=== PATIENT | female | born 1970 | race Caucasian/White ===

== ENCOUNTER 2017-01-23 12:57 | Inpatient (IN) | payer OTHER ==
[~2017-01-23] VITALS: Ht 162.6 cm; Wt 73.7 kg
[2017-01-23] MEDS ORDERED: SOD CHLORIDE 0.9% 1,000 ML IV STA (13:11)
[2017-01-23] MEDS ORDERED: HYDROmorphONE 1 MG/ML SYG IV STA (13:11)
[2017-01-23] MEDS ORDERED: ONDANSETRON 4 MG INJ IV STA (13:11)
--- NOTE | 2017-01-23 13:25 | ERD ---
ER Documentation Chief Complaint Chief Complaint BIB RA FOR EVAL OF MID SHARP ABD PAIN SINCE TODAY. HPI This is a 46-year-old female with no significant past medical history other than hysterectomy presents with abdominal pain. She states sudden onset of abdominal pain that is diffuse, 9 out of 10 and cramping that started this morning. She describes similar symptoms around 6 giving before eating. She has not had any pain since then. She denies any nausea or vomiting. She does note constipation with last bowel movement yesterday. She denies any chest pain or shortness of breath fevers or chills. ROS All systems reviewed and are negative except as per history of present illness. Medications Home Meds Reported Medications Esomeprazole Mag Trihydrate (Nexium) 20 Mg Capsule.dr, 20 MG PO DAILY, #30 CAP 01/23/17 Allergies Allergies: Coded Allergies: No Known Allergy (Unverified , 01/23/17) PMhx/Soc Medical and Surgical Hx: pt denies Medical Hx, pt denies Surgical Hx ( Hysterectomy) History of Surgery: Yes Hx Alcohol Use: No Hx Substance Use: No Hx Tobacco Use: No Smoking Status: Never smoker FmHx Family History: No diabetes Physical Exam Vitals Vital Signs Date Time Temp Pulse Resp B/P Pulse Ox O2 Delivery O2 Flow Rate FiO2 01/23/17 13:16 96.3 77 18 117/69 99 Physical Exam General: Uncomfortable Head: Normocephalic, atraumatic. Eyes: Pupils equally reactive, EOM intact ENT: Moist mucous membranes Neck: Supple, no lymphadenopathy Respiratory: Lungs clear bilaterally, no distress Cardiovascular: RRR, no murmurs, rubs, or gallops Abdominal: Soft, slightly protuberant with mild diffuse tenderness without localization, no peritonitis, though voluntary guarding : Deferred MSK: No edema, no unilateral swelling, 5/5 strength Neurologic: Alert and oriented, moving all extremities, normal speech, no focal weakness, no cerebellar signs Skin: No rash Psych: Normal mood Result Diagram: 01/23/17 1314 01/23/17 1314 Results 24 hrs Laboratory Tests Test 01/23/17 13:14 White Blood Count 8.210^3/ul Red Blood Count 4.6610^6/ul Hemoglobin 13.6g/dl Hematocrit 41.5% Mean Corpuscular Volume 89.1fl Mean Corpuscular Hemoglobin 29.2pg Mean Corpuscular Hemoglobin Concent 32.8g/dl Red Cell Distribution Width 12.9% Platelet Count 81273^3/UL Mean Platelet Volume 11.1fl Neutrophils % 67.1% Lymphocytes % 25.8% Monocytes % 4.3% Eosinophils % 2.0% Basophils % 0.4% Nucleated Red Blood Cells % 0.0/100WBC Neutrophils # 5.510^3/ul Lymphocytes # 2.110^3/ul Monocytes # 0.410^3/ul Eosinophils # 0.210^3/ul Basophils # 0.010^3/ul Nucleated Red Blood Cells # 0.010^3/ul Sodium Level 144mmol/L Potassium Level 3.5mmol/L Chloride Level 104mmol/L Carbon Dioxide Level 27mmol/L Anion Gap 17 Blood Urea Nitrogen 9mg/dl Creatinine 0.62mg/dl Glucose Level 138mg/dl Calcium Level 9.6mg/dl Total Bilirubin 0.2mg/dl Direct Bilirubin 0.00mg/dl Indirect Bilirubin 0.2mg/dl Aspartate Amino Transf (AST/SGOT) 747IU/L Alanine Aminotransferase (ALT/SGPT) 933IU/L Alkaline Phosphatase 194IU/L Total Protein 8.7g/dl Albumin 4.7g/dl Globulin 4.00g/dl Albumin/Globulin Ratio 1.17 Lipase 85670X/L Current Medications Medications (Trade) Dose Ordered Sig/Isabella Route PRN Reason Start Time Stop Time Status Last Admin Dose Admin Sodium Chloride (NS) 1,000 ml @ 1,000 mls/hr Q1H STAT IV 01/23/17 13:11 01/23/17 14:10 DC 01/23/17 13:21 Hydromorphone HCl (Dilaudid) 0.5 mg ONCE STAT IV 01/23/17 13:11 01/23/17 13:12 DC 01/23/17 13:21 Ondansetron HCl (Zofran Inj) 4 mg ONCE STAT IV 01/23/17 13:11 01/23/17 13:12 DC 01/23/17 13:20 Hydromorphone HCl (Dilaudid) 0.5 mg ONCE STAT IV 01/23/17 15:16 01/23/17 15:17 DC 01/23/17 16:03 Ondansetron HCl (Zofran Inj) 4 mg BRIDGE ORDER PRN IV NAUSEA AND/OR VOMITING 01/23/17 16:00 01/24/17 15:59 Acetaminophen (Tylenol Tab) 650 mg ER BRIDGE PRN PO MILD PAIN/FEVER 01/23/17 16:00 01/24/17 15:59 IV Flush (NS 3 ml) 3 ml PER PROTOCOL IV 01/23/17 16:00 UNV Ondansetron HCl (Zofran Inj) 4 mg Q6H PRN IV NAUSEA AND/OR VOMITING 01/23/17 16:00 UNV Acetaminophen (Tylenol Tab) 650 mg Q6H PRN PO PAIN LEVEL 1-3 OR FEVER 01/23/17 16:00 UNV Acetaminophen (Tylenol Supp) 650 mg Q6H PRN [place] PAIN LEVEL 1-3 OR FEVER 01/23/17 16:00 UNV Hydromorphone HCl (Dilaudid) 1 mg Q4H PRN IV SEVERE PAIN LEVEL 7-10 01/23/17 16:00 UNV Docusate Sodium (Colace) 100 mg Q12H PRN PO CONSTIPATION 01/23/17 16:00 UNV Magnesium Hydroxide (Milk Of Mag) 30 ml DAILY PRN PO CONSTIPATION 01/23/17 16:00 UNV Bisacodyl (Dulcolax Supp) 10 mg DAILY PRN [place] CONSTIPATION 01/23/17 16:00 UNV Pantoprazole (Protonix Iv) 40 mg DAILY@06 IV 01/24/17 06:00 UNV Enoxaparin Sodium (Lovenox) 40 mg DAILY SC 01/24/17 09:00 UNV Hydromorphone HCl 0.5 mg 0.5 mg Q4H PRN IV PAIN LEVEL 1-5 01/23/17 16:00 UNV Potassium Chloride/Dextrose/ Sod Cl (D5-NS + KCl 20 Meq) 1,000 ml @ 125 mls/hr Q8H IV 01/23/17 16:00 UNV Procedures/MDM EKG, MONITORS, & DIAGNOSTIC IMAGING: CT abdomen and pelvis: IMPRESSION: Acute non-hemorrhagic pancreatitis. No stones visualized. Enlarged fatty liver. 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 Post hysterectomy. LAB INTERPRETATION: Nonspecific transaminitis with elevated lipase consistent with acute pancreatitis MEDICAL DECISION MAKING: The patient's abdominal pain is sudden, diffuse. She is protuberant. Differential includes perforated viscus, constipation, acute appendicitis or cholelithiasis with much lower clinical concern for acute cholecystitis. However, given the amount of pain that she is having I believe CT imaging of the abdomen and pelvis is necessary. The patient does have surgical history raising the concern or possibility of small bowel obstruction. ER COURSE: The patient was given multiple doses of pain medication and IV fluids. The patient has a diagnosis of acute pancreatitis. The patient does not regularly drink alcohol. Consider possible choledocholithiasis given transaminitis. MRCP is indicated. Ultrasound was ordered to be followed by the admitting team. Her pain is improving at this time. I kept the patient and/or family informed of laboratory and diagnostic imaging results throughout the emergency room course. DISPOSITION PLAN: Medical surgical admission for management of acute pancreatitis CONSULTATION: Accepting care team and consultations: I discussed the current laboratory data, diagnostic imaging and emergency care provided. Admitting team: Dr. Neal BACON Admitting team indication: Insurance directed Departure Diagnosis: Primary Impression: Acute pancreatitis Pancreatitis type: unspecified pancreatitis type Acute pancreatitis complication: no infection or necrosis Qualified Code: K85.90 - Acute pancreatitis without infection or necrosis, unspecified pancreatitis type Additional Impressions: Generalized abdominal pain Transaminitis Condition: Stable GINA LYNN MD Jan 23, 2017 13:25
[2017-01-23 13:28] LABS: BASOPHILS % 0.4 % (0.0-2.0); EOSINOPHILS # 0.2 10^3/ul (0.0-0.5); HEMATOCRIT 41.5 % (37.0-47.0); HEMOGLOBIN 13.6 g/dl (12.0-16.0); LYMPHOCYTES # 2.1 10^3/ul (0.8-2.9); LYMPHOCYTES % 25.8 % (15.0-51.0); MEAN CORPUSCULAR HEMOGLOBIN 29.2 pg (29.0-33.0); MEAN CORPUSCULAR HGB CONC 32.8 g/dl (32.0-37.0); MEAN CORPUSCULAR VOLUME 89.1 fl (82.0-101.0); MEAN PLATELET VOLUME 11.1 fl (7.4-10.4); MONOCYTE # 0.4 10^3/ul (0.3-0.9); MONOCYTES % 4.3 % (0.0-11.0); NEUTROPHIL # 5.5 10^3/ul (1.6-7.5); NEUTROPHILS % 67.1 % (39.0-77.0); PLATELET COUNT 329 10^3/UL (140-415); RED BLOOD COUNT 4.66 10^6/ul (4.20-5.40); RED CELL DISTRIBUTION WIDTH 12.9 % (11.5-14.5); WHITE BLOOD COUNT 8.2 10^3/ul (4.8-10.8)
[2017-01-23 13:47] LABS: ALBUMIN 4.7 g/dl (3.3-4.9); ALBUMIN/GLOBULIN RATIO 1.17; BILIRUBIN,INDIRECT 0.2 mg/dl (0-1.1); BILIRUBIN,TOTAL 0.2 mg/dl (0.2-1.3); CALCIUM 9.6 mg/dl (8.4-10.2); CREATININE 0.62 mg/dl (0.44-1.00); POTASSIUM 3.5 mmol/L (3.5-5.1); TOTAL PROTEIN 8.7 g/dl (6.1-8.1)
--- NOTE | 2017-01-23 14:25 | RADRPT ---
PROCEDURE: CT abdomen and pelvis without contrast. CLINICAL INDICATION: Abdominal Pain TECHNIQUE: CT scan of the abdomen and pelvis without contrast was performed and is reconstructed a t 2.5 mm contiguous axial intervals from the dome of the diaphragm to the inferior pubic rami.. The patient was scanned without intravenous contrast. Sagittal and coronal reformatted images were obt ained from the axial source images. The calculated radiation dose measures 675 mGy centimeters. The CTDI measures 12 mGy. Individualized dose optimization technique was used for the performance of this exam. This included 1. Automated exposure control. 2. Adjustment of the mA and / or kV according to the patient's size. 3. Use of iterative reconstructed technique. COMPARISON: None. FINDINGS: The lung bases are clear of any mass. There are minimal ground-glass infiltrates at the lung bases.. No effusion is seen. Liver is enlarged measuring 22 cm in length priyanka infiltration. No mass or ductal dilatation is visu alized. No gallstones are visualized. no splenic or adrenal abnormality is present. There is diff use edema of the pancreas. The vela are somewhat indistinct. There is phlegmonous infiltration of t he peripancreatic fat with fluid tracking in the lesser sac. No discrete collection is seen and ther e is no hemorrhage or extraluminal gas. Findings are compatible with acute non-hemorrhagic pancreati tis. Kidneys are of normal size . There is a horseshoe configuration to the kidneys.. No hydronephrosis or masses seen. There is a 3 mm nonobstructing stone of the left kidney. Ureters are of normal cou rse and caliber with no stone. No bladder mass or stone is present. Uterus is been removed. No adne xal masses present. There is no aneurysm. No adenopathy is present. No bowel mass or obstruction is present. The appendix is not confidently visualized. There is div erticulosis.. No phlegmon, ascites or pneumoperitoneum is visualized. The osseous structures are intact. IMPRESSION: Acute non-hemorrhagic pancreatitis. No stones visualized. Enlarged fatty liver. 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 Post hysterectomy. .Scott Navarrete MD, MD Date Time Electronically viewed and signed by .Scott Navarrete MD, on 01/23/2017 14:25 .A/
[2017-01-23] MEDS ORDERED: HYDROmorphONE 0.5 MG/0.5 ML SYG IV STA (15:16)
[2017-01-23] MEDS ORDERED: ACETAMINOPHEN 325 MG TAB PO PRN ×2 (16:00)
[2017-01-23] MEDS ORDERED: BISACODYL 10 MG SUPP PR PRN (16:00)
[2017-01-23] MEDS ORDERED: ONDANSETRON 4 MG INJ IV PRN (16:00)
[2017-01-23] MEDS ORDERED: DOCUSATE SODIUM 100 MG CAP PO PRN (16:00)
[2017-01-23] MEDS ORDERED: NACL 0.9% 3 ML SYG IV SCH (16:00)
[2017-01-23] MEDS ORDERED: HYDROmorphONE 0.5 MG/0.5 ML SYG IV PRN ×2 (16:00)
[2017-01-23] MEDS ORDERED: ACETAMINOPHEN 650 MG SUPP PR PRN (16:00)
[2017-01-23] MEDS ORDERED: ESOM20CA PO (16:12)
--- NOTE | 2017-01-23 16:33 | HP ---
Date/Time of Note Date/Time of Note DATE: 01/23/17 TIME: 16:15 Assessment/Plan VTE Prophylaxis VTE Prophylaxis Intervention: LMWH Assessment/Plan Assessment/Plan 46-year-old female with: 1. Severe pancreatitis based on symptoms and pancreatic enzymes, confirmed on CAT scan of the abdomen and pelvis with significant inflammation of the pancreas. Gallbladder ultrasound and MRCP pending. N.p.o. except for medications, IV fluids, Zofran as needed, Dilaudid for pain control. GI consult in a.m. and further consults depending on MRCP and ultrasound results Fasting lipid panel, follow-up LFTs and pancreatic enzymes in a.m. Of note patient denies alcohol use, no other medications she takes beside Nexium , no herbal supplements however she does have bad diet, high fat content. 2. Transaminitis, significant, normal bilirubin, alkaline phosphatase not too elevated, likely to have fatty liver. Follow-up liver enzymes. Prophylaxis: Protonix for GI prophylaxis, Lovenox for DVT prophylaxis Disposition: Admit to medical surgical bed, n.p.o., IV fluids, pain control, antiemetic, follow-up MRCP and gallbladder ultrasound results, GI consult. HPI/ROS Admit Date/Time Admit Date/Time Hx of Present Illness Chief complaint: Abdominal pain History of presenting illness: 46-year-old female with no previous medical history who presented to the emergency department was reported acute severe abdominal pain today. Patient reports that she had similar epigastric pain/pressure on , she was told that it may be GERD or gastritis, she was started on proton pump inhibitors and taking Nexium, her discomfort resolved for the rest of last week, she had recurrence of the epigastric discomfort 2 days ago. Again resolved with proton pump inhibitors. However today around 11:30 AM she started having again recurrence of the epigastric discomfort, and over the period of a couple hours it worsened significantly and involve the rest of her abdomen, she did eat lunch however she had puposa, her pain persisted throughout the afternoon therefore she came to the emergency department. She denies nausea, vomiting, fevers. She denies previous diagnosis of gallstones disease or previous episodes of pancreatitis. In the emergency department her laboratory data did show a lipase of almost 40,000 with transaminitis, normal bilirubin level. Patient is admitted with severe acute pancreatitis based on pancreatic enzymes and current symptoms, otherwise her CBC and renal function remained stable. She will be kept n.p.o., on IV fluids. She is admitted to medical surgical bed, gallbladder ultrasound and MRCP's are pending. GI will be consulted. Patient denies any personal history of family history of malignancies especially colorectal or pancreatic. She denies previous diagnosis of gallstone disease. No history of heavy alcohol use, she denies alcohol intake actually, only takes Nexium as outpatient, however she does have a fatty diet. ROS Constitutional: no complaints Eyes: no complaints Respiratory: no complaints Cardiovascular: no complaints Gastrointestinal: decreased appetite, pain (Diffuse) Skin: no complaints Neurologic: no complaints Endocrine: no complaints Lymphatic: no complaints Psychological: no complaints PMH/Family/Social Past Medical History Chronic constipation and possible IBS Past Surgical History Status post hysterectomy Family History Significant Family History: no pertinent family hx Social History Alcohol Use: none Smoking Status: Never smoker Drug Use: none Exam/Review of Systems Vital Signs Vitals Vital Signs Date Time Temp Pulse Resp B/P Pulse Ox O2 Delivery O2 Flow Rate FiO2 01/23/17 13:16 96.3 77 18 117/69 99 Exam Constitutional: alert, oriented, well developed Respiratory: clear to auscultation, normal air movement Cardiovascular: nl pulses, regular rate and rhythm Gastrointestinal: non-tender, soft Musculoskeletal: nl extremities to inspection, nl gait and stance Extremities: normal pulses, other 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: 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, nl mental status, nl speech, nl strength Labs Result Diagram: 01/23/17 1314 01/23/17 1314 Medications Medications Current Medications Ondansetron HCl (Zofran Inj) 4 mg Q6H PRN IV NAUSEA AND/OR VOMITING; Start at 16:00; Status UNV Acetaminophen (Tylenol Tab) 650 mg Q6H PRN PO PAIN LEVEL 1-3 OR FEVER; Start 01/23/17 at 16:00; Status UNV Acetaminophen (Tylenol Supp) 650 mg Q6H PRN [place] PAIN LEVEL 1-3 OR FEVER; Start 01/23/17 at 16:00; Status UNV Hydromorphone HCl (Dilaudid) 1 mg Q4H PRN IV SEVERE PAIN LEVEL 7-10; Start at 16:00; Status UNV Docusate Sodium (Colace) 100 mg Q12H PRN PO CONSTIPATION; Start 01/23/17 at 16 :00; Status UNV Magnesium Hydroxide (Milk Of Mag) 30 ml DAILY PRN PO CONSTIPATION; Start 01/23 at 16:00; Status UNV Bisacodyl (Dulcolax Supp) 10 mg DAILY PRN [place] CONSTIPATION; Start 01/23/17 at 16:00; Status UNV Pantoprazole (Protonix Iv) 40 mg DAILY@06 IV ; Start 01/24/17 at 06:00; Status UNV Enoxaparin Sodium (Lovenox) 40 mg DAILY SC ; Start 01/24/17 at 09:00; Status UNV Hydromorphone HCl 0.5 mg 0.5 mg Q4H PRN IV PAIN LEVEL 1-5; Start 01/23/17 at 16:00; Status UNV Potassium Chloride/Dextrose/ Sod Cl (D5-NS + KCl 20 Meq) 1,000 ml @ 125 mls/hr Q8H IV ; Start 01/23/17 at 16:00; Status UNV Procedures Procedures PROCEDURE: CT abdomen and pelvis without contrast. CLINICAL INDICATION: Abdominal Pain TECHNIQUE: CT scan of the abdomen and pelvis without contrast was performed and is reconstructed at 2.5 mm contiguous axial intervals from the dome of the diaphragm to the inferior pubic rami.. The patient was scanned without intravenous contrast. Sagittal and coronal reformatted images were obtained from the axial source images. The calculated radiation dose measures 675 mGy centimeters. The CTDI measures 12 mGy. Individualized dose optimization technique was used for the performance of this exam. This included 1. Automated exposure control. 2. Adjustment of the mA and / or kV according to the patient's size. 3. Use of iterative reconstructed technique. COMPARISON: None. FINDINGS: The lung bases are clear of any mass. There are minimal ground-glass infiltrates at the lung bases.. No effusion is seen. Liver is enlarged measuring 22 cm in length priyanka infiltration. No mass or ductal dilatation is visualized. No gallstones are visualized. no splenic or adrenal abnormality is present. There is diffuse edema of the pancreas. The vela are somewhat indistinct. There is phlegmonous infiltration of the peripancreatic fat with fluid tracking in the lesser sac. No discrete collection is seen and there is no hemorrhage or extraluminal gas. Findings are compatible with acute non-hemorrhagic pancreatitis. Kidneys are of normal size . There is a horseshoe configuration to the kidneys.. No hydronephrosis or masses seen. There is a 3 mm nonobstructing stone of the left kidney. Ureters are of normal course and caliber with no stone. No bladder mass or stone is present. Uterus is been removed. No adnexal masses present. There is no aneurysm. No adenopathy is present. No bowel mass or obstruction is present. The appendix is not confidently visualized. There is diverticulosis.. No phlegmon, ascites or pneumoperitoneum is visualized. The osseous structures are intact. IMPRESSION: Acute non-hemorrhagic pancreatitis. No stones visualized. Enlarged fatty liver. 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 Post hysterectomy. .Scott Navarrete MD, MD Date Time Electronically viewed and signed by .Scott Navarrete MD, MD on 01/23/2017 14: 25 RANJAN PARTIDA Jan 23, 2017 16:25
--- NOTE | 2017-01-23 16:51 | RADRPT ---
PROCEDURE: US right upper quadrant abdomen CLINICAL INDICATION: Right upper quadrant abdomen pain. Nausea. Vomiting. TECHNIQUE: Multiple real-time images were acquired of the abdomen right upper quadrant COMPARISON: Abdomen/pelvis unenhanced CT 01/23/2017 FINDINGS: The liver is within normal limits in size on this sonogram but was noted to be enlarged on the CT sc an from the same date. Liver parenchyma is diffusely heterogeneous. The main portal vein is patent with hepatopetal blood flow. Multiple mobile echogenic gallbladder lumen findings have posterior acoustical shadowing, compatible with cholelithiasis. Gallbladder wall thickness is at the upper limits of normal. There is no abno rmal pericholecystic fluid seen. The Ruth's sign was positive. No intrahepatic or extrahepatic bi le duct dilation is seen. The common bile duct measures 5.1 mm in maximal dimension. Portions of the pancreas are obscured by overlying bowel gas; the visualized portions of the pancrea s reveal the pancreas to be borderline thickened. The right kidney measures 9.9 cm in length. The right kidney is unremarkable. No right upper quadrant ascites or right hydronephrosis seen. IMPRESSION: 1. Cholelithiasis. The Ruth sign was positive which raises the possibility of cholecystitis. 2. Liver parenchyma diffuse heterogeneity is consistent with patchy fatty liver seen on the CT scan from the same date. 3. Incompletely visualized pancreas. The visualized portions of the pancreas reveal pancreas borderl ine thickening; there is evidence of pancreatitis on the CT scan from the same date. Report called to the emergency room physician on 01/23/2017 at 1640 hours. RPTAT: TT Physician Swati Date Time Electronically viewed and signed by Natalio Stevens Physician on 01/23/2017 16:51 JS/
[2017-01-23] MEDS: D5-NS + KCL 20 MEQ 1,000 ML IV SCH (17:27)
--- NOTE | 2017-01-23 17:34 | RADRPT ---
PROCEDURE: MRI MRCP. CLINICAL INDICATION: Abdominal pain for 1 week, progressively worsening. Pancreatitis. TECHNIQUE: MRCP was performed without contrast. 3-D/multiplanar reformations and coronal rotating M IP images of the biliary tree were performed by the technologist and at an independent workstation. Evaluation is partially limited due to motion artifact. COMPARISON: CT and ultrasound dated 01/23/2017. FINDINGS: There is no intra or extrahepatic biliary ductal dilatation or filling defect within the biliary tree. Pancreatic duct is not identified. There are multiple stones within the gallbladder without associated gallbladder wall thickening. There is extensive pancreatic edema as well as peripancreatic inflammatory change and fluid tracking into the upper abdomen and inferiorly along the retroperitoneum. A horseshoe kidney is partially vi sualized. IMPRESSION: 1. No ductal dilatation or choledocholithiasis. 2. Acute pancreatitis with associated nonvisualization of the pancreatic duct due to pancreatic antonia ma. 3. Cholelithiasis. 4. Horseshoe kidney. RPTAT: HLBP .Jose Eduardo Ewing MD, Date Time Electronically viewed and signed by .Jose Eduardo Ewing MD, MD on 01/23/2017 17:34 .P/
[2017-01-23] MEDS: ONDANSETRON 4 MG INJ IV PRN (19:18)
[2017-01-23 19:56] VITALS: PULSE 70; TEMP 98.2
[2017-01-23 20:50] VITALS: BP 118/83; RESP 18
[2017-01-23 21:10] VITALS: Ht 162.6 cm; Wt 73.7 kg
[2017-01-23] MEDS: morphine 2 MG INJ IV PRN ×2 (21:45→23:38)
[2017-01-24] MEDS: morphine 2 MG INJ IV PRN ×10 (02:09→22:05)
[2017-01-24 02:10] VITALS: BP 115/76; RESP 20
[2017-01-24] MEDS: D5-NS + KCL 20 MEQ 1,000 ML IV SCH ×3 (02:28→14:00)
[2017-01-24 06:06] LABS: BASOPHILS % 0.3 % (0.0-2.0); HEMATOCRIT 40.5 % (37.0-47.0); HEMOGLOBIN 13.4 g/dl (12.0-16.0); LYMPHOCYTES # 1.3 10^3/ul (0.8-2.9); LYMPHOCYTES % 11.2 % (15.0-51.0); MEAN CORPUSCULAR HEMOGLOBIN 29.6 pg (29.0-33.0); MEAN CORPUSCULAR HGB CONC 33.1 g/dl (32.0-37.0); MEAN CORPUSCULAR VOLUME 89.6 fl (82.0-101.0); MEAN PLATELET VOLUME 11.7 fl (7.4-10.4); MONOCYTE # 0.3 10^3/ul (0.3-0.9); MONOCYTES % 2.8 % (0.0-11.0); NEUTROPHIL # 9.7 10^3/ul (1.6-7.5); NEUTROPHILS % 85.4 % (39.0-77.0); PLATELET COUNT 288 10^3/UL (140-415); RED BLOOD COUNT 4.52 10^6/ul (4.20-5.40); RED CELL DISTRIBUTION WIDTH 13.3 % (11.5-14.5); WHITE BLOOD COUNT 11.3 10^3/ul (4.8-10.8)
[2017-01-24] MEDS: PANTOPRAZOLE 40 MG INJ IV SCH (06:21)
[2017-01-24 06:29] LABS: AMYLASE 324 U/L (11-123)
[2017-01-24 06:41] LABS: INR 0.99; PROTIME 13.2 Sec (11.9-14.9)
[2017-01-24 06:42] LABS: PARTIAL THROMBOPLASTIN TIME 25.4 Sec (25.0-35.0)
[2017-01-24 06:45] LABS: ALBUMIN 3.7 g/dl (3.3-4.9); ALBUMIN/GLOBULIN RATIO 0.97; BILIRUBIN,INDIRECT 0.3 mg/dl (0-1.1); BILIRUBIN,TOTAL 0.3 mg/dl (0.2-1.3); CHOL/HDL RATIO 3.1 RATIO; CREATININE 0.55 mg/dl (0.44-1.00); MAGNESIUM 1.9 mg/dl (1.7-2.5); PHOSPHORUS 3.1 mg/dl (2.5-4.9); POTASSIUM 4.1 mmol/L (3.5-5.1); TOTAL PROTEIN 7.5 g/dl (6.1-8.1)
[2017-01-24 07:30] VITALS: BP 118/76; RESP 16
[2017-01-24] MEDS: ENOXAPARIN 40 MG/0.4 ML SYG SC SCH (08:28)
[2017-01-24] MEDS: PIPER-TAZO 3.375 GM IV (PMX) 50 ML IVPB SCH ×3 (10:24→22:05)
[2017-01-24 10:26] LABS: HAAIG REFLEX REFLEX FILED
--- NOTE | 2017-01-24 11:06 | CONS ---
Date/Time of Note Date/Time of Note DATE: 01/24/17 TIME: 10:35 Assessment/Plan Assessment/Plan Chief Complaint/Hosp Course Summary Assessment and Plan: Assessment: Severe pancreatitis MRCP- negative for ductal dilatation or choledocholithiasis. Patient does not drink ETOH, take medication at home, or recent trauma R/o infectious vs idiopathic etiology Transaminitis/trending down Hepatitis panel pending Plan: Keep NPO Continue IVF Continue to monitor aminotransferase/lipase Pain management She is seen in collaboration with Dr. Reza Problems: Consultation Date/Type/Reason Admit Date/Time Date of Consultation: Jan 24, 2017 Type of Consultation: GI Reason for Consultation Acute pancreatitis Hx of Present Illness This is a 46-year-old female past medical history of ectopic pregnancies 2 and a hysterectomy presented to the ER with progressive abdominal pain. Pain initially started on Thanksgiving patient thought pain was secondary to acid reflux start [id number] Nexium with resolution of pain. However pain started again last Friday with radiation to the back. Pain was described as a progressive cramping pain 10 out of 10 on the pain scale. She denies any relieving or aggravating factors. Upon workup in the ER lipase found to be 38, 621 AST was 747, ALT was 933, alkaline Fernando 194, bilirubin normal. With reevaluation lipase is trending down today is 2790, AST is 324, ALT 653, alkaline flossed 138. MRCP negative for common bile duct obstruction or choledocholithiasis. Gallbladder ultrasound positive for cholelithiasis, and Ruth sign. WBC today is 11.3 patient has been started on Zosyn. At time of evaluation pain is currently 5-6 out of 10 in relieving pain medication well. She currently denies nausea vomiting hematemesis hematochezia, or diarrhea. She denies alcohol use, does not take any medication at home, and denies any recent abdominal trauma. Will continue n.p.o. status, IV fluids, pain management, antiemetic management, hepatitis panel pending. Continue close observation of patient. Will provide further recommendations with clinical progression. Eyes: no complaints ENT: no complaints Respiratory: no complaints Cardiovascular: no complaints Gastrointestinal: constipation, decreased appetite, pain, No diarrhea, No nausea, No vomiting Genitourinary: no complaints Musculoskeletal: no complaints Skin: no complaints Neurologic: no complaints Past Medical History Medical History: other (2 ectopic pregnancies) Past Surgical History Past Surgical Hx: other (Hysterectomy) Family History Significant Family History: no pertinent family hx Social History Alcohol Use: none Smoking Status: Never smoker Drug Use: none Exam/Review of Systems Vital Signs Vitals Vital Signs Date Time Temp Pulse Resp B/P Pulse Ox O2 Delivery O2 Flow Rate FiO2 01/24/17 07:30 98.1 74 16 118/76 97 01/23/17 19:56 Room Air Intake and Output 01/23/17 01/23/17 01/24/17 15:00 23:00 07:00 Intake Total 1400 ml Balance 1400 ml Exam Constitutional: alert Psych: nl mood/affect, no complaints Head: normocephalic Eyes: nl conjunctiva ENMT: nl external ears & nose, nl lips & teeth Neck: non-tender, supple Respiratory: clear to auscultation, normal air movement Cardiovascular: regular rate and rhythm Gastrointestinal: distended, surgical scars, tender, No bowel sounds Genitourinary - Female: nl adnexae Musculoskeletal: nl extremities to inspection Extremities: normal pulses Skin: nl turgor Results Result Diagram: 01/24/17 0436 01/24/17 0436 Results 24 hrs Laboratory Tests Test 01/23/17 13:14 01/24/17 04:36 01/24/17 09:50 White Blood Count 8.2 11.3 #H Red Blood Count 4.66 4.52 Hemoglobin 13.6 13.4 Hematocrit 41.5 40.5 Mean Corpuscular Volume 89.1 89.6 Mean Corpuscular Hemoglobin 29.2 29.6 Mean Corpuscular Hemoglobin Concent 32.8 33.1 Red Cell Distribution Width 12.9 13.3 Platelet Count 329 288 Mean Platelet Volume 11.1 H 11.7 H Neutrophils % 67.1 85.4 H Lymphocytes % 25.8 11.2 L Monocytes % 4.3 2.8 Eosinophils % 2.0 0.0 Basophils % 0.4 0.3 Nucleated Red Blood Cells % 0.0 0.0 Neutrophils # 5.5 9.7 H Lymphocytes # 2.1 1.3 Monocytes # 0.4 0.3 Eosinophils # 0.2 0.0 Basophils # 0.0 0.0 Nucleated Red Blood Cells # 0.0 0.0 Sodium Level 144 145 H Potassium Level 3.5 4.1 Chloride Level 104 107 Carbon Dioxide Level 27 28 Anion Gap 17 H 14 Blood Urea Nitrogen 9 7 Creatinine 0.62 0.55 Glucose Level 138 147 Calcium Level 9.6 9.0 Total Bilirubin 0.2 0.3 Direct Bilirubin 0.00 0.00 Indirect Bilirubin 0.2 0.3 Aspartate Amino Transf (AST/SGOT) 747 H 324 H Alanine Aminotransferase (ALT/SGPT) 933 H 653 H Alkaline Phosphatase 194 H 138 H Total Protein 8.7 H 7.5 # Albumin 4.7 3.7 # Globulin 4.00 H 3.80 H Albumin/Globulin Ratio 1.17 0.97 Lipase 47964 H 2790 H Prothrombin Time 13.2 Prothrombin Time Ratio 1.0 INR International Normalized Ratio 0.99 Activated Partial Thromboplast Time 25.4 Phosphorus Level 3.1 Magnesium Level 1.9 Triglycerides Level 86 Cholesterol Level 154 LDL Cholesterol, Calculated 88 HDL Cholesterol 49 Cholesterol/HDL Ratio 3.1 Amylase Level 324 H Hepatitis B Surface Antigen Pending Hepatitis B Core Total Antibody Pending Hepatitis C Antibody Pending Medications Medications Current Medications Ondansetron HCl (Zofran Inj) 4 mg Q6H PRN IV NAUSEA AND/OR VOMITING Last administered on 01/23/17 19:18; Admin Dose 4 MG; Start 01/23/17 at 16:00 Acetaminophen (Tylenol Tab) 650 mg Q6H PRN PO PAIN LEVEL 1-3 OR FEVER; Start 01/23/17 at 16:00 Acetaminophen (Tylenol Supp) 650 mg Q6H PRN [place] PAIN LEVEL 1-3 OR FEVER; Start 01/23/17 at 16:00 Docusate Sodium (Colace) 100 mg Q12H PRN PO CONSTIPATION Last administered on 01/23/17 23:38; Admin Dose 100 MG; Start 01/23/17 at 16:00 Magnesium Hydroxide (Milk Of Mag) 30 ml DAILY PRN PO CONSTIPATION; Start 01/23 at 16:00 Bisacodyl (Dulcolax Supp) 10 mg DAILY PRN [place] CONSTIPATION; Start 01/23/17 at 16:00 Pantoprazole (Protonix Iv) 40 mg DAILY@06 IV Last administered on 01/24/17 06: 21; Admin Dose 40 MG; Start 01/24/17 at 06:00 Enoxaparin Sodium 40 mg 40 mg DAILY SC Last administered on 01/24/17 08:28; Admin Dose 40 MG; Start 01/24/17 at 09:00 Potassium Chloride/Dextrose/ Sod Cl (D5-NS + KCl 20 Meq) 1,000 ml @ 125 mls/hr Q8H IV Last administered on 01/24/17 02:28; Admin Dose 125 MLS/HR; Start at 16:00 Morphine Sulfate 2 mg 2 mg Q2H PRN IV PAIN Last administered on 01/24/17 10:24 ; Admin Dose 2 MG; Start 01/23/17 at 22:00 Piperacillin Sod/ Tazobactam Sod (Zosyn 3.375gm/ 50 ml (Pmx)) 50 ml @ 100 mls/ hr Q8 IVPB Last administered on 01/24/17 10:24; Admin Dose 100 MLS/HR; Start 01/24/17 at 10:00 Copies To: CC: WESLEY REZA MD, VICTORIA Jan 24, 2017 10:45
[2017-01-24 11:42] LABS: HEPATITIS B CORE ANTIBODY NEGATIVE (NEGATIVE)
--- NOTE | 2017-01-24 12:12 | PN ---
Date/Time of Note Date/Time of Note DATE: 01/24/17 TIME: 12:06 Assessment/Plan VTE Prophylaxis VTE Prophylaxis Intervention: LMWH Lines/Catheters IV Catheter Type (from Nrs): Peripheral IV Assessment/Plan Assessment/Plan 46-year-old female with: 1. Severe pancreatitis based on symptoms and pancreatic enzymes, confirmed on CAT scan of the abdomen and pelvis with significant inflammation of the pancreas , also seen on MRCP. Gallbladder with nonspecific findings. Appreciate recommendations from a gastroenterology, switch off. Patient to stay n.p.o. except for medications and sips of water and ice chips for now. Continue pain control, IV fluids, Zofran as needed, Dilaudid for pain control. Fasting lipid panel within normal. Follow-up CBC, LFTs and pancreatic enzymes in a.m. Follow-up further recommendations from gastroenterology depending on improvement of symptoms and pancreatic enzymes through the weekend. 2. Transaminitis, significant but improving., normal bilirubin, alkaline phosphatase not too elevated, fatty liver. Follow-up liver enzymes. Hepatitis panel pending. Prophylaxis: Protonix for GI prophylaxis, Lovenox for DVT prophylaxis Disposition: Continue current medical management, follow-up further GI recommendation through the weekend. Patient is encouraged to ambulate. Subjective 24 Hr Interval Summary Free Text/Dictation Patient still having some epigastric upper abdominal pain, however improved from yesterday, lipase is much improved today down to approximately 3000 from almost 40,000 yesterday. MRCP not showing specific biliary dilatation or obstruction but again there is so much inflammation around the pancreas that the pancreatic duct could not be visualized. Gallbladder ultrasound was questioning possible cholecystitis based on positive Ruth signs but very nonspecific as patient has a diffuse pain, no signs of gallbladder inflammation seen. Discussed with GI, for now will continue medical management, possibly repeat imaging versus ERCP in the next 2-3 days. Patient to remain n.p.o. except for ice chips and sips of water He is afebrile, WBC slightly elevated, IV antibiotics started in case patient does have biliary disease Exam/Review of Systems Vital Signs Vitals Vital Signs Date Time Temp Pulse Resp B/P Pulse Ox O2 Delivery O2 Flow Rate FiO2 01/24/17 07:30 98.1 74 16 118/76 97 01/23/17 19:56 Room Air Intake and Output 01/23/17 01/23/17 01/24/17 15:00 23:00 07:00 Intake Total 1400 ml Balance 1400 ml Exam Constitutional: alert, oriented, well developed Respiratory: clear to auscultation, normal air movement Cardiovascular: nl pulses, regular rate and rhythm Gastrointestinal: bowel sounds (Pleased), distended (Slightly), soft, tender ( Epigastric/upper abdomen) Musculoskeletal: nl extremities to inspection, nl gait and stance Extremities: normal pulses, other (No edema, clubbing or cyanosis) 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: AS[employer] PIPES II-XII intact, nl mental status, nl speech, nl strength Results Result Diagram: 01/24/176 01/24/17435 Results 24 hrs Laboratory Tests Test 01/23/17 13:14 01/24/17 04:36 01/24/17 09:50 White Blood Count 8.2 11.3 #H Red Blood Count 4.66 4.52 Hemoglobin 13.6 13.4 Hematocrit 41.5 40.5 Mean Corpuscular Volume 89.1 89.6 Mean Corpuscular Hemoglobin 29.2 29.6 Mean Corpuscular Hemoglobin Concent 32.8 33.1 Red Cell Distribution Width 12.9 13.3 Platelet Count 329 288 Mean Platelet Volume 11.1 H 11.7 H Neutrophils % 67.1 85.4 H Lymphocytes % 25.8 11.2 L Monocytes % 4.3 2.8 Eosinophils % 2.0 0.0 Basophils % 0.4 0.3 Nucleated Red Blood Cells % 0.0 0.0 Neutrophils # 5.5 9.7 H Lymphocytes # 2.1 1.3 Monocytes # 0.4 0.3 Eosinophils # 0.2 0.0 Basophils # 0.0 0.0 Nucleated Red Blood Cells # 0.0 0.0 Sodium Level 144 145 H Potassium Level 3.5 4.1 Chloride Level 104 107 Carbon Dioxide Level 27 28 Anion Gap 17 H 14 Blood Urea Nitrogen 9 7 Creatinine 0.62 0.55 Glucose Level 138 147 Calcium Level 9.6 9.0 Total Bilirubin 0.2 0.3 Direct Bilirubin 0.00 0.00 Indirect Bilirubin 0.2 0.3 Aspartate Amino Transf (AST/SGOT) 747 H 324 H Alanine Aminotransferase (ALT/SGPT) 933 H 653 H Alkaline Phosphatase 194 H 138 H Total Protein 8.7 H 7.5 # Albumin 4.7 3.7 # Globulin 4.00 H 3.80 H Albumin/Globulin Ratio 1.17 0.97 Lipase 60861 H 2790 H Prothrombin Time 13.2 Prothrombin Time Ratio 1.0 INR International Normalized Ratio 0.99 Activated Partial Thromboplast Time 25.4 Phosphorus Level 3.1 Magnesium Level 1.9 Triglycerides Level 86 Cholesterol Level 154 LDL Cholesterol, Calculated 88 HDL Cholesterol 49 Cholesterol/HDL Ratio 3.1 Amylase Level 324 H Hepatitis B Surface Antigen NEGATIVE Hepatitis B Core Total Antibody Pending Hepatitis C Antibody Pending Imaging Free Text/Dictation PROCEDURE: MRI MRCP. CLINICAL INDICATION: Abdominal pain for 1 week, progressively worsening. Pancreatitis. TECHNIQUE: MRCP was performed without contrast. 3-D/multiplanar reformations and coronal rotating MIP images of the biliary tree were performed by the technologist and at an independent workstation. Evaluation is partially limited due to motion artifact. COMPARISON: CT and ultrasound dated 01/23/2017. FINDINGS: There is no intra or extrahepatic biliary ductal dilatation or filling defect within the biliary tree. Pancreatic duct is not identified. There are multiple stones within the gallbladder without associated gallbladder wall thickening. There is extensive pancreatic edema as well as peripancreatic inflammatory change and fluid tracking into the upper abdomen and inferiorly along the retroperitoneum. 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 IMPRESSION: 1. No ductal dilatation or choledocholithiasis. 2. Acute pancreatitis with associated nonvisualization of the pancreatic duct due to pancreatic edema. 3. Cholelithiasis. 4. Horseshoe kidney. RPTAT: HLBP .Jose Eduardo Ewing MD, MD Date Time Electronically viewed and signed by .Jose Eduardo Ewing MD, MD on 01/23/2017 17:34 PROCEDURE: US right upper quadrant abdomen CLINICAL INDICATION: Right upper quadrant abdomen pain. Nausea. Vomiting. TECHNIQUE: Multiple real-time images were acquired of the abdomen right upper quadrant COMPARISON: Abdomen/pelvis unenhanced CT 01/23/2017 FINDINGS: The liver is within normal limits in size on this sonogram but was noted to be enlarged on the CT scan from the same date. Liver parenchyma is diffusely heterogeneous. The main portal vein is patent with hepatopetal blood flow. Multiple mobile echogenic gallbladder lumen findings have posterior acoustical shadowing, compatible with cholelithiasis. Gallbladder wall thickness is at the upper limits of normal. There is no abnormal pericholecystic fluid seen. The Ruth's sign was positive. No intrahepatic or extrahepatic bile duct dilation is seen. The common bile duct measures 5.1 mm in maximal dimension. Portions of the pancreas are obscured by overlying bowel gas; the visualized portions of the pancreas reveal the pancreas to be borderline thickened. The right kidney measures 9.9 cm in length. The right kidney is unremarkable. No right upper quadrant ascites or right hydronephrosis seen. IMPRESSION: 1. Cholelithiasis. The Ruth sign was positive which raises the possibility of cholecystitis. 2. Liver parenchyma diffuse heterogeneity is consistent with patchy fatty liver seen on the CT scan from the same date. 3. Incompletely visualized pancreas. The visualized portions of the pancreas reveal pancreas borderline thickening; there is evidence of pancreatitis on the CT scan from the same date. Report called to the emergency room physician on 01/23/2017 at 1640 hours. RPTAT: TT Physician Swati Date Time Electronically viewed and signed by Natalio Stevens Physician on 2016 16:51 Medications Medications Current Medications Ondansetron HCl (Zofran Inj) 4 mg Q6H PRN IV NAUSEA AND/OR VOMITING Last administered on 01/23/17 19:18; Admin Dose 4 MG; Start 01/23/17 at 16:00 Acetaminophen (Tylenol Tab) 650 mg Q6H PRN PO PAIN LEVEL 1-3 OR FEVER; Start 01/23/17 at 16:00 Acetaminophen (Tylenol Supp) 650 mg Q6H PRN [place] PAIN LEVEL 1-3 OR FEVER; Start 01/23/17 at 16:00 Docusate Sodium (Colace) 100 mg Q12H PRN PO CONSTIPATION Last administered on 01/23/17 23:38; Admin Dose 100 MG; Start 01/23/17 at 16:00 Magnesium Hydroxide (Milk Of Mag) 30 ml DAILY PRN PO CONSTIPATION; Start 01/23 at 16:00 Bisacodyl (Dulcolax Supp) 10 mg DAILY PRN [place] CONSTIPATION; Start 01/23/17 at 16:00 Pantoprazole (Protonix Iv) 40 mg DAILY@06 IV Last administered on 01/24/17 06: 21; Admin Dose 40 MG; Start 01/24/17 at 06:00 Enoxaparin Sodium 40 mg 40 mg DAILY SC Last administered on 01/24/17 08:28; Admin Dose 40 MG; Start 01/24/17 at 09:00 Potassium Chloride/Dextrose/ Sod Cl (D5-NS + KCl 20 Meq) 1,000 ml @ 125 mls/hr Q8H IV Last administered on 01/24/17 02:28; Admin Dose 125 MLS/HR; Start at 16:00 Morphine Sulfate 2 mg 2 mg Q2H PRN IV PAIN Last administered on 01/24/17 10:24 ; Admin Dose 2 MG; Start 01/23/17 at 22:00 Piperacillin Sod/ Tazobactam Sod (Zosyn 3.375gm/ 50 ml (Pmx)) 50 ml @ 100 mls/ hr Q8 IVPB Last administered on 01/24/17 10:24; Admin Dose 100 MLS/HR; Start 01/24/17 at 10:00 RANJAN PARTIDA Jan 24, 2017 12:12
[2017-01-24 14:00] VITALS: BP 125/74; RESP 16
[2017-01-24 20:40] VITALS: BP 129/75; RESP 18
[2017-01-25] MEDS: morphine 2 MG INJ IV PRN ×11 (00:12→21:48)
[2017-01-25] MEDS: D5-NS + KCL 20 MEQ 1,000 ML IV SCH ×5 (00:12→23:43)
[2017-01-25 03:07] VITALS: BP 119/70; RESP 18
[2017-01-25 05:20] LABS: BASOPHILS % 0.2 % (0.0-2.0); EOSINOPHILS % 0.1 % (0.0-7.0); HEMOGLOBIN 12.9 g/dl (12.0-16.0); LYMPHOCYTES # 1.5 10^3/ul (0.8-2.9); LYMPHOCYTES % 8.5 % (15.0-51.0); MEAN CORPUSCULAR HEMOGLOBIN 29.7 pg (29.0-33.0); MEAN CORPUSCULAR HGB CONC 33.1 g/dl (32.0-37.0); MEAN CORPUSCULAR VOLUME 89.9 fl (82.0-101.0); MEAN PLATELET VOLUME 11.4 fl (7.4-10.4); MONOCYTE # 0.7 10^3/ul (0.3-0.9); MONOCYTES % 4.3 % (0.0-11.0); NEUTROPHILS % 86.4 % (39.0-77.0); PLATELET COUNT 255 10^3/UL (140-415); RED BLOOD COUNT 4.34 10^6/ul (4.20-5.40); RED CELL DISTRIBUTION WIDTH 13.9 % (11.5-14.5); WHITE BLOOD COUNT 17.4 10^3/ul (4.8-10.8)
[2017-01-25 05:35] LABS: INR 1.06; PROTIME 13.9 Sec (11.9-14.9); PT RATIO 1.1
[2017-01-25 05:36] LABS: PARTIAL THROMBOPLASTIN TIME 29.1 Sec (25.0-35.0)
[2017-01-25] MEDS: PIPER-TAZO 3.375 GM IV (PMX) 50 ML IVPB SCH ×3 (05:46→21:44)
[2017-01-25] MEDS: PANTOPRAZOLE 40 MG INJ IV SCH (05:46)
[2017-01-25 06:02] LABS: ALBUMIN 3.4 g/dl (3.3-4.9); ALBUMIN/GLOBULIN RATIO 0.89; BILIRUBIN,INDIRECT 0.4 mg/dl (0-1.1); BILIRUBIN,TOTAL 0.4 mg/dl (0.2-1.3); CALCIUM 8.7 mg/dl (8.4-10.2); CREATININE 0.54 mg/dl (0.44-1.00); POTASSIUM 3.6 mmol/L (3.5-5.1); TOTAL PROTEIN 7.2 g/dl (6.1-8.1)
[2017-01-25 06:21] LABS: MAGNESIUM 1.7 mg/dl (1.7-2.5); PHOSPHORUS 3.2 mg/dl (2.5-4.9)
[2017-01-25 08:00] VITALS: BP 125/72; RESP 16
[2017-01-25] MEDS: ENOXAPARIN 40 MG/0.4 ML SYG SC SCH (09:18)
--- NOTE | 2017-01-25 10:06 | PN ---
Date/Time of Note Date/Time of Note DATE: 01/25/17 TIME: 09:56 Assessment/Plan VTE Prophylaxis VTE Prophylaxis Intervention: ambulation Lines/Catheters IV Catheter Type (from Nrs): Peripheral IV Assessment/Plan Chief Complaint/Hosp Course Assessment: Acute pancreatitis Viral versus autoimmune MRCP- negative for ductal dilatation or choledocholithiasis. Hepatitis panel is negative Patient does not drink ETOH Transaminitis is trending down Leukocytosis 14.1 Abdominal distention due to gas Plan: Simethicone for gas Continue NPO Continue IVF Pain management Consultation performed in collaboration with Dr. Reza Patient reports feeling better with pain medications every 2 hours. She reports a lot of gas pain and distention. Generalized abdominal tenderness with moderate pain in mid epigastric area. Patient encouraged to ambulate. Updated on the latest laboratory results and plan of treatment. Patient and family verbalized understanding and agreement with treatment plan. PHYSICAL EXAMINATION: GENERAL: Well developed, well nourished, alert & oriented x 3, in no acute distress SKIN: No lesions, no stigmata chronic liver disease, no evidence of bleeding diathesis LYMPHATIC: No palpable lymphadenopathy. HEAD: Normocephalic, atraumatic, no tenderness. EYES: Pupils equal reactive to light and accommodation, full extraocular movements, sclera clear, non-icteric, no discharge. EARS/NOSE AND THROAT: Ears normal, nose normal, oropharynx normal, oral membranes well hydrated without lesions. NECK: Supple, no masses, thyroid normal, JVP within normal limits, carotids normal without bruits. CHEST: Inspection within normal limits. CARDIOVASCULAR: Heart: Regular rate and rhythm, no murmurs, gallops or rubs. Peripheral pulses present within normal limits, no cyanosis, clubbing or edemas. No pulsatile abdominal mass RESPIRATORY: Lungs clear to auscultation and percussion, no wheezing, no rubs GASTROINTESTINAL AND LIVER: Abdomen: Soft, generalized tenderness especially in the mid epigastric area, moderately distended, no hernias, no masses, no organomegaly, no ascites, no guarding, no rebound tenderness, normoactive bowel sounds. Rectal: Deferred. GENITOURINARY: Female genitalia within normal limits.] EXTREMITIES: No cyanosis, clubbing or edema. Problems: Exam/Review of Systems Vital Signs Vitals Vital Signs Date Time Temp Pulse Resp B/P Pulse Ox O2 Delivery O2 Flow Rate FiO2 01/25/17 08:00 99.6 99 16 125/72 95 01/23/17 19:56 Room Air Intake and Output 01/24/17 01/24/17 01/25/17 15:00 23:00 07:00 Intake Total 550 ml 575 ml 1260 ml Balance 550 ml 575 ml 1260 ml Results Result Diagram: 01/25/17 0451 01/25/17 0451 Results 24 hrs Laboratory Tests Test 01/25/17 04:51 White Blood Count 17.4 #H Red Blood Count 4.34 Hemoglobin 12.9 Hematocrit 39.0 Mean Corpuscular Volume 89.9 Mean Corpuscular Hemoglobin 29.7 Mean Corpuscular Hemoglobin Concent 33.1 Red Cell Distribution Width 13.9 Platelet Count 255 Mean Platelet Volume 11.4 H Neutrophils % 86.4 H Lymphocytes % 8.5 L Monocytes % 4.3 Eosinophils % 0.1 Basophils % 0.2 Nucleated Red Blood Cells % 0.0 Neutrophils # 15.0 H Lymphocytes # 1.5 Monocytes # 0.7 Eosinophils # 0.0 Basophils # 0.0 Nucleated Red Blood Cells # 0.0 Prothrombin Time 13.9 Prothrombin Time Ratio 1.1 INR International Normalized Ratio 1.06 Activated Partial Thromboplast Time 29.1 Sodium Level 143 Potassium Level 3.6 Chloride Level 104 Carbon Dioxide Level 30 Anion Gap 13 Blood Urea Nitrogen 5 L Creatinine 0.54 Glucose Level 115 Calcium Level 8.7 Phosphorus Level 3.2 Magnesium Level 1.7 Total Bilirubin 0.4 Direct Bilirubin 0.00 Indirect Bilirubin 0.4 Aspartate Amino Transf (AST/SGOT) 112 H Alanine Aminotransferase (ALT/SGPT) 409 H Alkaline Phosphatase 113 Total Protein 7.2 Albumin 3.4 Globulin 3.80 H Albumin/Globulin Ratio 0.89 Amylase Level 176 #H Lipase 644 H Medications Medications Current Medications Ondansetron HCl (Zofran Inj) 4 mg Q6H PRN IV NAUSEA AND/OR VOMITING Last administered on 01/23/17t 19:18; Admin Dose 4 MG; Start 01/23/17 at 16:00 Acetaminophen (Tylenol Tab) 650 mg Q6H PRN PO PAIN LEVEL 1-3 OR FEVER; Start 01/23/17 at 16:00 Acetaminophen (Tylenol Supp) 650 mg Q6H PRN [place] PAIN LEVEL 1-3 OR FEVER; Start 01/23/17 at 16:00 Docusate Sodium (Colace) 100 mg Q12H PRN PO CONSTIPATION Last administered on 01/23/17 23:38; Admin Dose 100 MG; Start 01/23/17 at 16:00 Magnesium Hydroxide (Milk Of Mag) 30 ml DAILY PRN PO CONSTIPATION; Start 01/23 at 16:00 Bisacodyl (Dulcolax Supp) 10 mg DAILY PRN [place] CONSTIPATION; Start 01/23/17 at 16:00 Pantoprazole (Protonix Iv) 40 mg DAILY@06 IV Last administered on 01/25/17 05: 46; Admin Dose 40 MG; Start 01/24/17 at 06:00 Enoxaparin Sodium 40 mg 40 mg DAILY SC Last administered on 01/25/17 09:18; Admin Dose 40 MG; Start 01/24/17 at 09:00 Potassium Chloride/Dextrose/ Sod Cl (D5-NS + KCl 20 Meq) 1,000 ml @ 125 mls/hr Q8H IV Last administered on 01/25/17 09:24; Admin Dose 125 MLS/HR; Start at 16:00 Morphine Sulfate 2 mg 2 mg Q2H PRN IV PAIN Last administered on 01/25/17 07:59 ; Admin Dose 2 MG; Start 01/23/17 at 22:00 Piperacillin Sod/ Tazobactam Sod (Zosyn 3.375gm/ 50 ml (Pmx)) 50 ml @ 100 mls/ hr Q8 IVPB Last administered on 01/25/17 05:46; Admin Dose 100 MLS/HR; Start 01/24/17 at 10:00 HKLOE LEUNG NP Jan 25, 2017 10:06
--- NOTE | 2017-01-25 12:42 | PN ---
Date/Time of Note Date/Time of Note DATE: 01/25/17 TIME: 12:39 Assessment/Plan VTE Prophylaxis VTE Prophylaxis Intervention: ambulation, SCD's Lines/Catheters IV Catheter Type (from Nrsg): Peripheral IV Central line still needed: No Urinary Cath still in place: No Assessment/Plan Assessment/Plan 46-year-old female with: 1. Severe pancreatitis based on symptoms and pancreatic enzymes, confirmed on CAT scan of the abdomen and pelvis with significant inflammation of the pancreas , also seen on MRCP. Gallbladder with nonspecific findings. Appreciate recommendations from a gastroenterology service. Patient to stay n.p.o. except for medications and sips of water and ice chips for now. Continue pain control, IV fluids, Zofran as needed, Dilaudid for pain control. Fasting lipid panel within normal. Follow-up CBC, LFTs and pancreatic enzymes are improving. Follow-up further recommendations from gastroenterology depending on improvement of symptoms and pancreatic enzymes through the weekend. 2. Transaminitis, significant but improving, normal bilirubin, alkaline phosphatase not too elevated, fatty liver. Follow-up liver enzymes. Hepatitis panel pending. Prophylaxis: Protonix for GI prophylaxis, Lovenox for DVT prophylaxis Disposition: Continue current medical management, follow-up further GI recommendation through the weekend. Patient is encouraged to ambulate. Case discussed with the patient and her stepdaughter at the bedside. All questions were answered to their satisfaction. Subjective 24 Hr Interval Summary Free Text/Dictation Overall feeling better. She is still not hungry, but was able to take a shower and feels refreshed. Abdominal and epigastric pain is subsiding. Exam/Review of Systems Vital Signs Vitals Vital Signs Date Time Temp Pulse Resp B/P Pulse Ox O2 Delivery O2 Flow Rate FiO2 01/25/17 08:00 99.6 99 16 125/72 95 01/23/17 19:56 Room Air Intake and Output 01/24/17 01/24/17 01/25/17 15:00 23:00 07:00 Intake Total 550 ml 575 ml 1260 ml Balance 550 ml 575 ml 1260 ml Exam Constitutional: alert, oriented Psych: no complaints Head: normocephalic Eyes: nl conjunctiva ENMT: nl external ears & nose Neck: supple Respiratory: clear to auscultation Cardiovascular: regular rate and rhythm Gastrointestinal: distended, other (Faint hypo-active bowel sounds) Extremities: normal pulses Results Result Diagram: 01/25/17 0451 01/25/17 0451 Results 24 hrs Laboratory Tests Test 01/25/17 04:51 White Blood Count 17.4 #H Red Blood Count 4.34 Hemoglobin 12.9 Hematocrit 39.0 Mean Corpuscular Volume 89.9 Mean Corpuscular Hemoglobin 29.7 Mean Corpuscular Hemoglobin Concent 33.1 Red Cell Distribution Width 13.9 Platelet Count 255 Mean Platelet Volume 11.4 H Neutrophils % 86.4 H Lymphocytes % 8.5 L Monocytes % 4.3 Eosinophils % 0.1 Basophils % 0.2 Nucleated Red Blood Cells % 0.0 Neutrophils # 15.0 H Lymphocytes # 1.5 Monocytes # 0.7 Eosinophils # 0.0 Basophils # 0.0 Nucleated Red Blood Cells # 0.0 Prothrombin Time 13.9 Prothrombin Time Ratio 1.1 INR International Normalized Ratio 1.06 Activated Partial Thromboplast Time 29.1 Sodium Level 143 Potassium Level 3.6 Chloride Level 104 Carbon Dioxide Level 30 Anion Gap 13 Blood Urea Nitrogen 5 L Creatinine 0.54 Glucose Level 115 Calcium Level 8.7 Phosphorus Level 3.2 Magnesium Level 1.7 Total Bilirubin 0.4 Direct Bilirubin 0.00 Indirect Bilirubin 0.4 Aspartate Amino Transf (AST/SGOT) 112 H Alanine Aminotransferase (ALT/SGPT) 409 H Alkaline Phosphatase 113 Total Protein 7.2 Albumin 3.4 Globulin 3.80 H Albumin/Globulin Ratio 0.89 Amylase Level 176 #H Lipase 644 H Medications Medications Current Medications Ondansetron HCl (Zofran Inj) 4 mg Q6H PRN IV NAUSEA AND/OR VOMITING Last administered on 01/23/17 19:18; Admin Dose 4 MG; Start 01/23/17 at 16:00 Acetaminophen (Tylenol Tab) 650 mg Q6H PRN PO PAIN LEVEL 1-3 OR FEVER; Start 01/23/17 at 16:00 Acetaminophen (Tylenol Supp) 650 mg Q6H PRN [place] PAIN LEVEL 1-3 OR FEVER; Start 01/23/17 at 16:00 Docusate Sodium (Colace) 100 mg Q12H PRN PO CONSTIPATION Last administered on 01/23/17 23:38; Admin Dose 100 MG; Start 01/23/17 at 16:00 Magnesium Hydroxide (Milk Of Mag) 30 ml DAILY PRN [place] CONSTIPATION; Start 01/23 at 16:00 Bisacodyl (Dulcolax Supp) 10 mg DAILY PRN [place] CONSTIPATION; Start 01/23/17 at 16:00 Enoxaparin Sodium 40 mg 40 mg DAILY SC Last administered on 01/25/17 09:18; Admin Dose 40 MG; Start 01/24/17 at 09:00 Potassium Chloride/Dextrose/ Sod Cl (D5-NS + KCl 20 Meq) 1,000 ml @ 125 mls/hr Q8H IV Last administered on 01/25/17 09:24; Admin Dose 125 MLS/HR; Start at 16:00 Morphine Sulfate 2 mg 2 mg Q2H PRN IV PAIN Last administered on 01/25/17 10:07 ; Admin Dose 2 MG; Start 01/23/17 at 22:00 Piperacillin Sod/ Tazobactam Sod (Zosyn 3.375gm/ 50 ml (Pmx)) 50 ml @ 100 mls/ hr Q8 IVPB Last administered on 01/25/17 05:46; Admin Dose 100 MLS/HR; Start 01/24/17 at 10:00 Simethicone (Mylicon) 80 mg Q6 GTB ; Start 01/25/17 at 12:00 Famotidine (Pepcid Iv) 20 mg BID IV ; Start 01/25/17 at 21:00 BERE CHUN MD Jan 25, 2017 12:42
[2017-01-25 14:00] VITALS: BP 133/85; RESP 18
[2017-01-25 20:00] VITALS: BP 127/80; RESP 19
[2017-01-25] MEDS: FAMOTIDINE 20 MG INJ IV SCH (21:44)
[2017-01-26] MEDS: morphine 2 MG INJ IV PRN ×9 (00:36→22:07)
[2017-01-26 02:00] VITALS: BP 128/85; RESP 19
[2017-01-26] MEDS: D5-NS + KCL 20 MEQ 1,000 ML IV SCH ×4 (04:24→22:07)
[2017-01-26] MEDS: PIPER-TAZO 3.375 GM IV (PMX) 50 ML IVPB SCH ×3 (05:29→21:16)
[2017-01-26 05:40] LABS: BASOPHIL # 0.1 10^3/ul (0.0-0.1); BASOPHILS % 0.3 % (0.0-2.0); EOSINOPHILS # 0.1 10^3/ul (0.0-0.5); EOSINOPHILS % 0.4 % (0.0-7.0); HEMATOCRIT 34.3 % (37.0-47.0); HEMOGLOBIN 11.6 g/dl (12.0-16.0); LYMPHOCYTES # 1.8 10^3/ul (0.8-2.9); LYMPHOCYTES % 10.9 % (15.0-51.0); MEAN CORPUSCULAR HEMOGLOBIN 29.6 pg (29.0-33.0); MEAN CORPUSCULAR HGB CONC 33.8 g/dl (32.0-37.0); MEAN CORPUSCULAR VOLUME 87.5 fl (82.0-101.0); MEAN PLATELET VOLUME 11.8 fl (7.4-10.4); MONOCYTES % 5.8 % (0.0-11.0); NEUTROPHIL # 13.6 10^3/ul (1.6-7.5); NEUTROPHILS % 81.9 % (39.0-77.0); PLATELET COUNT 210 10^3/UL (140-415); RED BLOOD COUNT 3.92 10^6/ul (4.20-5.40); RED CELL DISTRIBUTION WIDTH 13.6 % (11.5-14.5); WHITE BLOOD COUNT 16.6 10^3/ul (4.8-10.8)
[2017-01-26 06:06] LABS: ALBUMIN 3.1 g/dl (3.3-4.9); BILIRUBIN,INDIRECT 0.3 mg/dl (0-1.1); BILIRUBIN,TOTAL 0.3 mg/dl (0.2-1.3); CALCIUM 8.1 mg/dl (8.4-10.2); CREATININE 0.53 mg/dl (0.44-1.00); POTASSIUM 3.6 mmol/L (3.5-5.1); TOTAL PROTEIN 6.5 g/dl (6.1-8.1)
[2017-01-26 07:51] VITALS: BP 118/77; RESP 18
[2017-01-26 07:51] LABS: AMYLASE 63 U/L (11-123)
[2017-01-26] MEDS: FAMOTIDINE 20 MG INJ IV SCH ×2 (08:14→21:15)
[2017-01-26] MEDS: ENOXAPARIN 40 MG/0.4 ML SYG SC SCH (08:14)
--- NOTE | 2017-01-26 10:11 | PN ---
Date/Time of Note Date/Time of Note DATE: 01/26/17 TIME: 09:54 Assessment/Plan VTE Prophylaxis VTE Prophylaxis Intervention: ambulation Lines/Catheters IV [facility] Type (from [facility] Peripheral IV Urinary Cath still in place: No Assessment/Plan Chief Complaint/Hosp Course Assessment: Acute pancreatitis Viral versus autoimmune MRCP- negative for ductal dilatation or choledocholithiasis. Hepatitis panel is negative Patient does not drink ETOH Transaminitis continue trending down Leukocytosis 16.6 Abdominal distention due to gas Plan: Order MiraLAX for constipation Continue simethicone for gas Continue NPO Continue IVF Pain management Consultation performed in collaboration with Dr. Reza Patient still having pain 8 out of 10, as needed pain medications every 2 hours. She has not had stool since Friday. She reports generalized abdominal tenderness with moderate pain in left upper quadrant region. Started on simethicone yesterday with some relief of gas. will order MiraLAX for constipation . Patient ambulates within the room. Updated on the latest laboratory results and plan of treatment. Patient in agreement with treatment plan. PHYSICAL EXAMINATION: GENERAL: Well developed, well nourished, alert & oriented x 3, in no acute distress SKIN: No lesions, no stigmata chronic liver disease, no evidence of bleeding diathesis LYMPHATIC: No palpable lymphadenopathy. HEAD: Normocephalic, atraumatic, no tenderness. EYES: Pupils equal reactive to light and accommodation, full extraocular movements, sclera clear, non-icteric, no discharge. EARS/NOSE AND THROAT: Ears normal, nose normal, oropharynx normal, oral membranes well hydrated without lesions. NECK: Supple, no masses, thyroid normal, JVP within normal limits, carotids normal without bruits. CHEST: Inspection within normal limits. CARDIOVASCULAR: Heart: Regular rate and rhythm, no murmurs, gallops or rubs. Peripheral pulses present within normal limits, no cyanosis, clubbing or edemas. No pulsatile abdominal mass RESPIRATORY: Lungs clear to auscultation and percussion, no wheezing, no rubs GASTROINTESTINAL AND LIVER: Abdomen: Obese, distended, generalized tenderness especially in the left upper quadrant area, no hernias, no masses, no organomegaly, no ascites, no guarding, no rebound tenderness, normoactive bowel sounds. Rectal: Deferred. GENITOURINARY: Female genitalia within normal limits.] EXTREMITIES: No cyanosis, clubbing or edema. Problems: Exam/Review of Systems Vital Signs Vitals Vital Signs Date Time Temp Pulse Resp B/P Pulse Ox O2 Delivery O2 Flow Rate FiO2 01/26/17 07:51 99.2 100 18 118/77 93 01/23/17 19:56 Room Air Intake and Output 01/25/17 01/25/17 01/26/17 15:00 23:00 07:00 Intake Total 315 ml 50 ml 50 ml Balance 315 ml 50 ml 50 ml Results Result Diagram: 01/26/17 0436 01/26/17 0436 Results 24 hrs Laboratory Tests Test 01/26/17 04:36 White Blood Count 16.6 H Red Blood Count 3.92 L Hemoglobin 11.6 L Hematocrit 34.3 L Mean Corpuscular Volume 87.5 Mean Corpuscular Hemoglobin 29.6 Mean Corpuscular Hemoglobin Concent 33.8 Red Cell Distribution Width 13.6 Platelet Count 210 Mean Platelet Volume 11.8 H Neutrophils % 81.9 H Lymphocytes % 10.9 L Monocytes % 5.8 Eosinophils % 0.4 Basophils % 0.3 Nucleated Red Blood Cells % 0.0 Neutrophils # 13.6 H Lymphocytes # 1.8 Monocytes # 1.0 H Eosinophils # 0.1 Basophils # 0.1 Nucleated Red Blood Cells # 0.0 Sodium Level 137 Potassium Level 3.6 Chloride Level 102 Carbon Dioxide Level 27 Anion Gap 12 Blood Urea Nitrogen 5 L Creatinine 0.53 Glucose Level 109 Calcium Level 8.1 L Total Bilirubin 0.3 Direct Bilirubin 0.00 Indirect Bilirubin 0.3 Aspartate Amino Transf (AST/SGOT) 51 H Alanine Aminotransferase (ALT/SGPT) 239 H Alkaline Phosphatase 102 Total Protein 6.5 Albumin 3.1 L Amylase Level 63 # Lipase 76 Medications Medications Current Medications Ondansetron HCl (Zofran Inj) 4 mg Q6H PRN IV NAUSEA AND/OR VOMITING Last administered on 01/23/17t 19:18; Admin Dose 4 MG; Start 01/23/17 at 16:00 Acetaminophen (Tylenol Tab) 650 mg Q6H PRN PO PAIN LEVEL 1-3 OR FEVER; Start 01/23/17 at 16:00 Acetaminophen (Tylenol Supp) 650 mg Q6H PRN [place] PAIN LEVEL 1-3 OR FEVER; Start 01/23/17 at 16:00 Docusate Sodium (Colace) 100 mg Q12H PRN PO CONSTIPATION Last administered on 01/23/17 23:38; Admin Dose 100 MG; Start 01/23/17 at 16:00 Magnesium Hydroxide (Milk Of Mag) 30 ml DAILY PRN PO CONSTIPATION; Start 01/23 at 16:00 Bisacodyl (Dulcolax Supp) 10 mg DAILY PRN [place] CONSTIPATION; Start 01/23/17 at 16:00 Enoxaparin Sodium 40 mg 40 mg DAILY SC Last administered on 01/26/17 08:14; Admin Dose 40 MG; Start 01/24/17 at 09:00 Potassium Chloride/Dextrose/ Sod Cl (D5-NS + KCl 20 Meq) 1,000 ml @ 125 mls/hr Q8H IV Last administered on 01/26/17 04:24; Admin Dose 125 MLS/HR; Start at 16:00 Morphine Sulfate 2 mg 2 mg Q2H PRN IV PAIN Last administered on 01/26/17 07:37 ; Admin Dose 2 MG; Start 01/23/17 at 22:00 Piperacillin Sod/ Tazobactam Sod (Zosyn 3.375gm/ 50 ml (Pmx)) 50 ml @ 100 mls/ hr Q8 IVPB Last administered on 01/26/17 05:29; Admin Dose 100 MLS/HR; Start 01/24/17 at 10:00 Simethicone (Mylicon) 80 mg Q6 GTB Last administered on 01/26/17 05:29; Admin Dose 80 MG; Start 01/25/17 at 12:00 Famotidine (Pepcid Iv) 20 mg BID IV Last administered on 01/26/17 08:14; Admin Dose 20 MG; Start 01/25/17 at 21:00 KHLOE LEUNG NP Jan 26, 2017 10:11
--- NOTE | 2017-01-26 10:53 | PN ---
Date/Time of Note Date/Time of Note DATE: 01/26/17 TIME: 10:47 Assessment/Plan VTE Prophylaxis VTE Prophylaxis Intervention: ambulation Lines/Catheters IV Catheter Type (from Nrs): Peripheral IV Central line still needed: No Urinary Cath still in place: No Assessment/Plan Assessment/Plan 46-year-old female with: 1. Severe pancreatitis based on symptoms and pancreatic enzymes, confirmed on CAT scan of the abdomen and pelvis with significant inflammation of the pancreas , also seen on MRCP. Gallbladder with nonspecific findings. Appreciate recommendations from a gastroenterology service. Patient to stay n.p.o. except for medications and sips of water and ice chips for now. Continue pain control, IV fluids, Zofran as needed, Dilaudid for pain control. Follow-up CBC, LFTs and pancreatic enzymes are at normal levels. As she is still having some abdominal pain, I agree with holding clears for now, and re- evaluating in the AM. 2. Transaminitis, significant but improving, normal bilirubin, alkaline phosphatase not too elevated, fatty liver. Follow-up liver enzymes. Prophylaxis: Protonix for GI prophylaxis, Lovenox for DVT prophylaxis Disposition: Continue current medical management, follow-up further GI recommendation through the weekend. Patient is encouraged to ambulate. All questions were answered to her satisfaction. Subjective 24 Hr Interval Summary Free Text/Dictation Overall, pain is decreased as well as bloating. She had a low-grade temp to 100.3, otherwise doing okay. Exam/Review of Systems Vital Signs Vitals Vital Signs Date Time Temp Pulse Resp B/P Pulse Ox O2 Delivery O2 Flow Rate FiO2 01/26/17 07:51 99.2 100 18 118/77 93 01/23/17 19:56 Room Air Intake and Output 01/25/17 01/25/17 01/26/17 15:00 23:00 07:00 Intake Total 315 ml 50 ml 50 ml Balance 315 ml 50 ml 50 ml Exam Constitutional: alert, oriented Psych: no complaints Head: normocephalic Eyes: nl conjunctiva ENMT: nl external ears & nose Neck: supple Respiratory: clear to auscultation Cardiovascular: regular rate and rhythm Gastrointestinal: distended, soft, tender Extremities: normal pulses 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: [employer] II-XII intact Results Result Diagram: 01/26/17 0436 01/26/17 0436 Results 24 hrs Laboratory Tests Test 01/26/17 04:36 White Blood Count 16.6 H Red Blood Count 3.92 L Hemoglobin 11.6 L Hematocrit 34.3 L Mean Corpuscular Volume 87.5 Mean Corpuscular Hemoglobin 29.6 Mean Corpuscular Hemoglobin Concent 33.8 Red Cell Distribution Width 13.6 Platelet Count 210 Mean Platelet Volume 11.8 H Neutrophils % 81.9 H Lymphocytes % 10.9 L Monocytes % 5.8 Eosinophils % 0.4 Basophils % 0.3 Nucleated Red Blood Cells % 0.0 Neutrophils # 13.6 H Lymphocytes # 1.8 Monocytes # 1.0 H Eosinophils # 0.1 Basophils # 0.1 Nucleated Red Blood Cells # 0.0 Sodium Level 137 Potassium Level 3.6 Chloride Level 102 Carbon Dioxide Level 27 Anion Gap 12 Blood Urea Nitrogen 5 L Creatinine 0.53 Glucose Level 109 Calcium Level 8.1 L Total Bilirubin 0.3 Direct Bilirubin 0.00 Indirect Bilirubin 0.3 Aspartate Amino Transf (AST/SGOT) 51 H Alanine Aminotransferase (ALT/SGPT) 239 H Alkaline Phosphatase 102 Total Protein 6.5 Albumin 3.1 L Amylase Level 63 # Lipase 76 Medications Medications Current Medications Ondansetron HCl (Zofran Inj) 4 mg Q6H PRN IV NAUSEA AND/OR VOMITING Last administered on 01/23/17 19:18; Admin Dose 4 MG; Start 01/23/17 at 16:00 Acetaminophen (Tylenol Tab) 650 mg Q6H PRN PO PAIN LEVEL 1-3 OR FEVER; Start 01/23/17 at 16:00 Acetaminophen (Tylenol Supp) 650 mg Q6H PRN [place] PAIN LEVEL 1-3 OR FEVER; Start 01/23/17 at 16:00 Docusate Sodium (Colace) 100 mg Q12H PRN PO CONSTIPATION Last administered on 01/23/17 23:38; Admin Dose 100 MG; Start 01/23/17 at 16:00 Magnesium Hydroxide (Milk Of Mag) 30 ml DAILY PRN PO CONSTIPATION; Start 01/23 at 16:00 Bisacodyl (Dulcolax Supp) 10 mg DAILY PRN [place] CONSTIPATION; Start 01/23/17 at 16:00 Enoxaparin Sodium 40 mg 40 mg DAILY SC Last administered on 01/26/17 08:14; Admin Dose 40 MG; Start 01/24/17 at 09:00 Potassium Chloride/Dextrose/ Sod Cl (D5-NS + KCl 20 Meq) 1,000 ml @ 125 mls/hr Q8H IV Last administered on 01/26/17 04:24; Admin Dose 125 MLS/HR; Start at 16:00 Morphine Sulfate 2 mg 2 mg Q2H PRN IV PAIN Last administered on 01/26/17 10:16 ; Admin Dose 2 MG; Start 01/23/17 at 22:00 Piperacillin Sod/ Tazobactam Sod (Zosyn 3.375gm/ 50 ml (Pmx)) 50 ml @ 100 mls/ hr Q8 IVPB Last administered on 01/26/17 05:29; Admin Dose 100 MLS/HR; Start 01/24/17 at 10:00 Simethicone (Mylicon) 80 mg Q6 GTB Last administered on 01/26/17 05:29; Admin Dose 80 MG; Start 01/25/17 at 12:00 Famotidine (Pepcid Iv) 20 mg BID IV Last administered on 01/26/17 08:14; Admin Dose 20 MG; Start 01/25/17 at 21:00 Polyethylene Glycol (Miralax) 8.5 gm DAILY PO ; Start 01/26/17 at 10:30 BERE CHUN MD Jan 26, 2017 10:53
[2017-01-26] MEDS: POLYETHYLENE GLYCOL 17 GM PACKET PO SCH (11:29)
[2017-01-26 14:00] VITALS: BP 124/83; RESP 19
[2017-01-26 20:58] VITALS: BP 132/78; RESP 18
[2017-01-27] MEDS: morphine 2 MG INJ IV PRN ×4 (00:48→12:10)
[2017-01-27 02:22] VITALS: BP 121/82; RESP 18
[2017-01-27 05:36] LABS: BASOPHILS % 0.3 % (0.0-2.0); EOSINOPHILS # 0.2 10^3/ul (0.0-0.5); EOSINOPHILS % 1.2 % (0.0-7.0); HEMATOCRIT 31.5 % (37.0-47.0); HEMOGLOBIN 10.8 g/dl (12.0-16.0); LYMPHOCYTES # 1.6 10^3/ul (0.8-2.9); LYMPHOCYTES % 12.4 % (15.0-51.0); MEAN CORPUSCULAR HEMOGLOBIN 29.5 pg (29.0-33.0); MEAN CORPUSCULAR HGB CONC 34.3 g/dl (32.0-37.0); MEAN CORPUSCULAR VOLUME 86.1 fl (82.0-101.0); MEAN PLATELET VOLUME 11.8 fl (7.4-10.4); MONOCYTE # 0.9 10^3/ul (0.3-0.9); MONOCYTES % 6.8 % (0.0-11.0); NEUTROPHIL # 10.2 10^3/ul (1.6-7.5); NEUTROPHILS % 78.8 % (39.0-77.0); PLATELET COUNT 194 10^3/UL (140-415); RED BLOOD COUNT 3.66 10^6/ul (4.20-5.40); RED CELL DISTRIBUTION WIDTH 13.2 % (11.5-14.5)
[2017-01-27] MEDS: PIPER-TAZO 3.375 GM IV (PMX) 50 ML IVPB SCH ×3 (05:37→21:44)
[2017-01-27 05:58] LABS: ALBUMIN 2.8 g/dl (3.3-4.9); BILIRUBIN,INDIRECT 0.3 mg/dl (0-1.1); BILIRUBIN,TOTAL 0.3 mg/dl (0.2-1.3); TOTAL PROTEIN 5.8 g/dl (6.1-8.1)
[2017-01-27 06:07] LABS: CALCIUM 8.1 mg/dl (8.4-10.2); CREATININE 0.52 mg/dl (0.44-1.00); POTASSIUM 3.4 mmol/L (3.5-5.1)
[2017-01-27] MEDS: D5-NS + KCL 20 MEQ 1,000 ML IV SCH ×3 (07:39→19:30)
[2017-01-27 07:51] VITALS: BP 139/83; RESP 18
[2017-01-27] MEDS: FAMOTIDINE 20 MG INJ IV SCH ×2 (08:06→20:33)
[2017-01-27] MEDS: POLYETHYLENE GLYCOL 17 GM PACKET PO SCH (08:06)
[2017-01-27] MEDS: ENOXAPARIN 40 MG/0.4 ML SYG SC SCH (08:15)
--- NOTE | 2017-01-27 10:34 | PN ---
Date/Time of Note Date/Time of Note DATE: 01/27/17 TIME: 10:33 Assessment/Plan VTE Prophylaxis VTE Prophylaxis Intervention: SCD's Lines/Catheters IV Catheter Type (from Nrs): Peripheral IV Urinary Cath still in place: No Assessment/Plan Chief Complaint/Hosp Course Assessment: Acute pancreatitis Viral versus autoimmune MRCP- negative for ductal dilatation or choledocholithiasis. Hepatitis panel is negative Patient does not drink ETOH Transaminitis continue trending down Leukocytosis 16.6 Abdominal distention due to gas Plan: Continue MiraLAX for constipation Continue simethicone for gas Continue NPO Continue IVF Aminotransferase trending down Amylase and lipase are within normal range Pain management Patient seen in collaboration with Dr. Reza Pain with significant improvement, pain now at 2/10 LUQ, simethicone is helping with gas, still has not had BM will increased frequency of MiraLax. PHYSICAL EXAMINATION: GENERAL: Well developed, well nourished, alert & oriented x 3, in no acute distress SKIN: No lesions, no stigmata chronic liver disease, no evidence of bleeding diathesis LYMPHATIC: No palpable lymphadenopathy. HEAD: Normocephalic, atraumatic, no tenderness. EYES: Pupils equal reactive to light and accommodation, full extraocular movements, sclera clear, non-icteric, no discharge. EARS/NOSE AND THROAT: Ears normal, nose normal, oropharynx normal, oral membranes well hydrated without lesions. NECK: Supple, no masses, thyroid normal, JVP within normal limits, carotids normal without bruits. CHEST: Inspection within normal limits. CARDIOVASCULAR: Heart: Regular rate and rhythm, no murmurs, gallops or rubs. Peripheral pulses present within normal limits, no cyanosis, clubbing or edemas. No pulsatile abdominal mass RESPIRATORY: Lungs clear to auscultation and percussion, no wheezing, no rubs GASTROINTESTINAL AND LIVER: Abdomen: Obese, distended, generalized tenderness especially in the left upper quadrant area, no hernias, no masses, no organomegaly, no ascites, no guarding, no rebound tenderness, normoactive bowel sounds. Rectal: Deferred. GENITOURINARY: Female genitalia within normal limits.] EXTREMITIES: No cyanosis, clubbing or edema. Problems: Problems: Exam/Review of Systems Vital Signs Vitals Vital Signs Date Time Temp Pulse Resp B/P Pulse Ox O2 Delivery O2 Flow Rate FiO2 01/27/17 07:51 98.2 101 18 139/83 95 01/23/17 19:56 Room Air Intake and Output 01/26/17 01/26/17 01/27/17 14:59 22:59 06:59 Intake Total 1100 ml 735 ml 925 ml Balance 1100 ml 735 ml 925 ml Results Result Diagram: 01/27/17 0437 01/27/17 0438 Results 24 hrs Laboratory Tests Test 01/27/17 04:37 01/27/17 04:38 White Blood Count 13.0 #H Red Blood Count 3.66 L Hemoglobin 10.8 L Hematocrit 31.5 L Mean Corpuscular Volume 86.1 Mean Corpuscular Hemoglobin 29.5 Mean Corpuscular Hemoglobin Concent 34.3 Red Cell Distribution Width 13.2 Platelet Count 194 Mean Platelet Volume 11.8 H Neutrophils % 78.8 H Lymphocytes % 12.4 L Monocytes % 6.8 Eosinophils % 1.2 Basophils % 0.3 Nucleated Red Blood Cells % 0.0 Neutrophils # 10.2 H Lymphocytes # 1.6 Monocytes # 0.9 Eosinophils # 0.2 Basophils # 0.0 Nucleated Red Blood Cells # 0.0 Total Bilirubin 0.3 Direct Bilirubin 0.00 Indirect Bilirubin 0.3 Aspartate Amino Transf (AST/SGOT) 30 Alanine Aminotransferase (ALT/SGPT) 163 H Alkaline Phosphatase 92 Total Protein 5.8 L Albumin 2.8 L Sodium Level 137 Potassium Level 3.4 L Chloride Level 102 Carbon Dioxide Level 26 Anion Gap 12 Blood Urea Nitrogen 4 L Creatinine 0.52 Glucose Level 123 Calcium Level 8.1 L Medications Medications Current Medications Ondansetron HCl (Zofran Inj) 4 mg Q6H PRN IV NAUSEA AND/OR VOMITING Last administered on 01/23/17 19:18; Admin Dose 4 MG; Start 01/23/17 at 16:00 Acetaminophen (Tylenol Tab) 650 mg Q6H PRN PO PAIN LEVEL 1-3 OR FEVER; Start 01/23/17 at 16:00 Acetaminophen (Tylenol Supp) 650 mg Q6H PRN [place] PAIN LEVEL 1-3 OR FEVER; Start 01/23/17 at 16:00 Docusate Sodium (Colace) 100 mg Q12H PRN PO CONSTIPATION Last administered on 01/23/17 23:38; Admin Dose 100 MG; Start 01/23/17 at 16:00 Magnesium Hydroxide (Milk Of Mag) 30 ml DAILY PRN PO CONSTIPATION; Start 01/23 at 16:00 Bisacodyl (Dulcolax Supp) 10 mg DAILY PRN [place] CONSTIPATION; Start 01/23/17 at 16:00 Enoxaparin Sodium 40 mg 40 mg DAILY SC Last administered on 01/27/17 08:15; Admin Dose 40 MG; Start 01/24/17 at 09:00 Potassium Chloride/Dextrose/ Sod Cl (D5-NS + KCl 20 Meq) 1,000 ml @ 125 mls/hr Q8H IV Last administered on 01/27/17 07:39; Admin Dose 125 MLS/HR; Start at 16:00 Morphine Sulfate 2 mg 2 mg Q2H PRN IV PAIN Last administered on 01/27/17 08:06 ; Admin Dose 2 MG; Start 01/23/17 at 22:00 Piperacillin Sod/ Tazobactam Sod (Zosyn 3.375gm/ 50 ml (Pmx)) 50 ml @ 100 mls/ hr Q8 IVPB Last administered on 01/27/17 05:37; Admin Dose 100 MLS/HR; Start 01/24/17 at 10:00 Simethicone (Mylicon) 80 mg Q6 GTB Last administered on 01/27/17 05:37; Admin Dose 80 MG; Start 01/25/17 at 12:00 Famotidine (Pepcid Iv) 20 mg BID IV Last administered on 01/27/17 08:06; Admin Dose 20 MG; Start 01/25/17 at 21:00 Polyethylene Glycol (Miralax) 8.5 gm DAILY PO Last administered on 01/27/17 08 :06; Admin Dose 8.5 GM; Start 01/26/17 at 10:30 DEDRICK LUCIA Jan 27, 2017 10:34 DEDRICK LUCIA Jan 27, 2017 10:34
[2017-01-27] MEDS ORDERED: POLYETHYLENE GLYCOL 17 GM PACKET PO PRN (11:30)
--- NOTE | 2017-01-27 14:33 | PN ---
Date/Time of Note Date/Time of Note DATE: 01/27/17 TIME: 14:32 Assessment/Plan VTE Prophylaxis VTE Prophylaxis Intervention: LMWH Lines/Catheters [facility] (from [facility]): Peripheral IV Urinary Cath still in place: No Assessment/Plan Assessment/Plan 46-year-old female with: 1. Resolving severe pancreatitis based on symptoms and pancreatic enzymes, confirmed on CAT scan of the abdomen and pelvis with significant inflammation of the pancreas, also seen on MRCP. Gallbladder with nonspecific findings. Appreciate recommendations from a gastroenterology, Dr. Reza. Pancreatic enzymes within normal as of yesterday, patient to start p.o. tomorrow. Treating constipation. Etiology of pancreatitis might be viral versus autoimmune per GI evaluation, no need for additional imaging or repeat imaging for now. 2. Transaminitis, significant on admission but improving. Follow-up LFTs in a.m. Hepatitis panel negative. Prophylaxis: Protonix for GI prophylaxis, Lovenox for DVT prophylaxis Disposition: Continue current medical management, plan for diet to be started tomorrow. Patient is encouraged to ambulate. Subjective 24 Hr Interval Summary Free Text/Dictation Patient denies abdominal pain today, she is constipated and is on bowel regimen currently. She denies epigastric pain or left lower quadrant pain that she was having with the constipation. Her pancreatic enzymes have normalized as of yesterday. Discussed with gastroenterology, plan to start p.o. tomorrow. No further studies or repeat studies needed so far as patient has clinically improved greatly. Exam/Review of Systems Vital Signs Vitals Vital Signs Date Time Temp Pulse Resp B/P Pulse Ox O2 Delivery O2 Flow Rate FiO2 01/27/17 07:51 98.2 101 18 139/83 95 01/23/17 19:56 Room Air Intake and Output 01/26/17 01/26/17 01/27/17 15:00 23:00 07:00 Intake Total 1050 ml 735 ml 925 ml Balance 1050 ml 735 ml 925 ml Exam Constitutional: alert, oriented, well developed Respiratory: clear to auscultation, normal air movement Cardiovascular: nl pulses, regular rate and rhythm Gastrointestinal: distended (Slightly), non-tender, soft Musculoskeletal: nl extremities to inspection Extremities: normal pulses, other (No edema, clubbing or cyanosis) 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: 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 [employer]ER II-XII intact, nl mental status, nl speech, nl strength Results Result Diagram: 01/27/17 0437 01/27/17 0438 Results 24 hrs Laboratory Tests Test 01/27/17 04:37 01/27/17 04:38 White Blood Count 13.0 #H Red Blood Count 3.66 L Hemoglobin 10.8 L Hematocrit 31.5 L Mean Corpuscular Volume 86.1 Mean Corpuscular Hemoglobin 29.5 Mean Corpuscular Hemoglobin Concent 34.3 Red Cell Distribution Width 13.2 Platelet Count 194 Mean Platelet Volume 11.8 H Neutrophils % 78.8 H Lymphocytes % 12.4 L Monocytes % 6.8 Eosinophils % 1.2 Basophils % 0.3 Nucleated Red Blood Cells % 0.0 Neutrophils # 10.2 H Lymphocytes # 1.6 Monocytes # 0.9 Eosinophils # 0.2 Basophils # 0.0 Nucleated Red Blood Cells # 0.0 Total Bilirubin 0.3 Direct Bilirubin 0.00 Indirect Bilirubin 0.3 Aspartate Amino Transf (AST/SGOT) 30 Alanine Aminotransferase (ALT/SGPT) 163 H Alkaline Phosphatase 92 Total Protein 5.8 L Albumin 2.8 L Sodium Level 137 Potassium Level 3.4 L Chloride Level 102 Carbon Dioxide Level 26 Anion Gap 12 Blood Urea Nitrogen 4 L Creatinine 0.52 Glucose Level 123 Calcium Level 8.1 L Medications Medications Current Medications Ondansetron HCl (Zofran Inj) 4 mg Q6H PRN IV NAUSEA AND/OR VOMITING Last administered on 01/23/17 19:18; Admin Dose 4 MG; Start 01/23/17 at 16:00 Acetaminophen (Tylenol Tab) 650 mg Q6H PRN PO PAIN LEVEL 1-3 OR FEVER; Start 01/23/17 at 16:00 Acetaminophen (Tylenol Supp) 650 mg Q6H PRN [place] PAIN LEVEL 1-3 OR FEVER; Start 01/23/17 at 16:00 Docusate Sodium (Colace) 100 mg Q12H PRN PO CONSTIPATION Last administered on 01/23/17 23:38; Admin Dose 100 MG; Start 01/23/17 at 16:00 Magnesium Hydroxide (Milk Of Mag) 30 ml DAILY PRN PO CONSTIPATION; Start 01/23 at 16:00 Bisacodyl (Dulcolax Supp) 10 mg DAILY PRN [place] CONSTIPATION Last administered on 01/27/17 14:01; Admin Dose 10 MG; Start 01/23/17 at 16:00 Enoxaparin Sodium 40 mg 40 mg DAILY SC Last administered on 01/27/17 08:15; Admin Dose 40 MG; Start 01/24/17 at 09:00 Potassium Chloride/Dextrose/ Sod Cl (D5-NS + KCl 20 Meq) 1,000 ml @ 125 mls/hr Q8H IV Last administered on 01/27/17 07:39; Admin Dose 125 MLS/HR; Start at 16:00 Morphine Sulfate 2 mg 2 mg Q2H PRN IV PAIN Last administered on 01/27/17 12:10 ; Admin Dose 2 MG; Start 01/23/17 at 22:00 Piperacillin Sod/ Tazobactam Sod (Zosyn 3.375gm/ 50 ml (Pmx)) 50 ml @ 100 mls/ hr Q8 IVPB Last administered on 01/27/17 13:55; Admin Dose 100 MLS/HR; Start 01/24/17 at 10:00 Simethicone (Mylicon) 80 mg Q6 GTB Last administered on 01/27/17 12:10; Admin Dose 80 MG; Start 01/25/17 at 12:00 Famotidine (Pepcid Iv) 20 mg BID IV Last administered on 01/27/17 08:06; Admin Dose 20 MG; Start 01/25/17 at 21:00 Polyethylene Glycol (Miralax) 17 gm BID PRN PO constipation; Start 01/27/17 at 11:30 RANJAN PARTIDA Jan 27, 2017 14:33
[2017-01-27] MEDS ORDERED: POTASSIUM CHLORIDE (SR) 20 MEQ TAB PO STA (14:43)
[2017-01-27 14:50] VITALS: BP 129/80; RESP 16
[2017-01-27] MEDS: MAGNESIUM HYDROXIDE 30ML CUP PO PRN (17:03)
--- NOTE | 2017-01-27 20:03 | RADRPT ---
PROCEDURE: XR Abdomen. CLINICAL INDICATION: Ileus. Abdominal pain. TECHNIQUE: AP abdomen x-ray. COMPARISON: None. FINDINGS: The bowel gas pattern is normal. Phleboliths overlie the pelvis. There is no evidence of free air or obstruction. There are no abnormal calcifications overlying the urinary tracts.The osseus structure s are unremarkable. IMPRESSION: 1. No free air or obstruction. RPTAT:AAJJ Physician Fahad Date Time Electronically viewed and signed by Physician Fahad on 01/27/2017 20:03 SOURAV/
[2017-01-27 20:28] VITALS: BP 140/80; RESP 21
[2017-01-28 02:55] VITALS: BP 127/82; RESP 18
[2017-01-28] MEDS: D5-NS + KCL 20 MEQ 1,000 ML IV SCH ×2 (03:11→14:32)
[2017-01-28] MEDS: PIPER-TAZO 3.375 GM IV (PMX) 50 ML IVPB SCH ×2 (05:24→14:29)
[2017-01-28 06:08] LABS: BASOPHILS % 0.4 % (0.0-2.0); EOSINOPHILS # 0.2 10^3/ul (0.0-0.5); EOSINOPHILS % 1.6 % (0.0-7.0); HEMATOCRIT 30.2 % (37.0-47.0); HEMOGLOBIN 10.4 g/dl (12.0-16.0); LYMPHOCYTES # 1.5 10^3/ul (0.8-2.9); LYMPHOCYTES % 14.6 % (15.0-51.0); MEAN CORPUSCULAR HEMOGLOBIN 29.5 pg (29.0-33.0); MEAN CORPUSCULAR HGB CONC 34.4 g/dl (32.0-37.0); MEAN CORPUSCULAR VOLUME 85.6 fl (82.0-101.0); MEAN PLATELET VOLUME 11.8 fl (7.4-10.4); MONOCYTE # 0.8 10^3/ul (0.3-0.9); MONOCYTES % 8.1 % (0.0-11.0); NEUTROPHIL # 7.8 10^3/ul (1.6-7.5); NEUTROPHILS % 74.9 % (39.0-77.0); PLATELET COUNT 242 10^3/UL (140-415); RED BLOOD COUNT 3.53 10^6/ul (4.20-5.40); RED CELL DISTRIBUTION WIDTH 12.9 % (11.5-14.5); WHITE BLOOD COUNT 10.4 10^3/ul (4.8-10.8)
[2017-01-28 06:40] LABS: ALBUMIN 3.3 g/dl (3.3-4.9); ALBUMIN/GLOBULIN RATIO 0.91; BILIRUBIN,INDIRECT 0.2 mg/dl (0-1.1); BILIRUBIN,TOTAL 0.2 mg/dl (0.2-1.3); CALCIUM 8.5 mg/dl (8.4-10.2); CREATININE 0.49 mg/dl (0.44-1.00); POTASSIUM 3.8 mmol/L (3.5-5.1); TOTAL PROTEIN 6.9 g/dl (6.1-8.1)
[2017-01-28] MEDS: FAMOTIDINE 20 MG INJ IV SCH ×2 (09:39→20:25)
[2017-01-28] MEDS: ENOXAPARIN 40 MG/0.4 ML SYG SC SCH (09:39)
--- NOTE | 2017-01-28 11:00 | PN ---
Date/Time of Note Date/Time of Note DATE: 01/28/17 TIME: 10:59 Assessment/Plan VTE Prophylaxis VTE Prophylaxis Intervention: SCD's Lines/Catheters IV Catheter Type (from [facility]): Peripheral IV Urinary Cath still in place: No Assessment/Plan Chief Complaint/Hosp Course Assessment: Acute pancreatitis Viral versus autoimmune MRCP- negative for ductal dilatation or choledocholithiasis. Hepatitis panel is negative Patient does not drink ETOH Transaminitis continue trending down Leukocytosis 16.6 Abdominal distention due to gas Plan: Will start clear liquid diet Advance as tolerated Aminotransferase trending down Amylase and lipase are within normal range Pain management KUB- negative Patient seen in collaboration with Dr. Reza Patient doing very well, no c/o abd pain or discomfort, KUB negative will start clear liquid diet and advance as tolerated PHYSICAL EXAMINATION: GENERAL: Well developed, well nourished, alert & oriented x 3, in no acute distress SKIN: No lesions, no stigmata chronic liver disease, no evidence of bleeding diathesis LYMPHATIC: No palpable lymphadenopathy. HEAD: Normocephalic, atraumatic, no tenderness. EYES: Pupils equal reactive to light and accommodation, full extraocular movements, sclera clear, non-icteric, no discharge. EARS/NOSE AND THROAT: Ears normal, nose normal, oropharynx normal, oral membranes well hydrated without lesions. NECK: Supple, no masses, thyroid normal, JVP within normal limits, carotids normal without bruits. CHEST: Inspection within normal limits. CARDIOVASCULAR: Heart: Regular rate and rhythm, no murmurs, gallops or rubs. Peripheral pulses present within normal limits, no cyanosis, clubbing or edemas. No pulsatile abdominal mass RESPIRATORY: Lungs clear to auscultation and percussion, no wheezing, no rubs GASTROINTESTINAL AND LIVER: Abdomen: Obese, distended, generalized tenderness especially in the left upper quadrant area, no hernias, no masses, no organomegaly, no ascites, no guarding, no rebound tenderness, normoactive bowel sounds. Rectal: Deferred. GENITOURINARY: Female genitalia within normal limits.] EXTREMITIES: No cyanosis, clubbing or edema. Problems: Problems: Exam/Review of Systems Vital Signs Vitals Vital Signs Date Time Temp Pulse Resp B/P Pulse Ox O2 Delivery O2 Flow Rate FiO2 01/28/17 02:55 98.6 87 18 127/82 96 Intake and Output 12/4/17 12/4/17 12/5/17 15:00 23:00 07:00 Intake Total 125 ml 1020 ml 1500 ml Balance 125 ml 1020 ml 1500 ml Results Result Diagram: 01/28/17 0457 01/28/17 0457 Results 24 hrs Laboratory Tests Test 01/28/17 04:57 White Blood Count 10.4 Red Blood Count 3.53 L Hemoglobin 10.4 L Hematocrit 30.2 L Mean Corpuscular Volume 85.6 Mean Corpuscular Hemoglobin 29.5 Mean Corpuscular Hemoglobin Concent 34.4 Red Cell Distribution Width 12.9 Platelet Count 242 # Mean Platelet Volume 11.8 H Neutrophils % 74.9 Lymphocytes % 14.6 L Monocytes % 8.1 Eosinophils % 1.6 Basophils % 0.4 Nucleated Red Blood Cells % 0.0 Neutrophils # 7.8 H Lymphocytes # 1.5 Monocytes # 0.8 Eosinophils # 0.2 Basophils # 0.0 Nucleated Red Blood Cells # 0.0 Sodium Level 138 Potassium Level 3.8 Chloride Level 105 Carbon Dioxide Level 26 Anion Gap 11 Blood Urea Nitrogen 3 L Creatinine 0.49 Glucose Level 124 Calcium Level 8.5 Phosphorus Level 3.0 Magnesium Level 2.0 Total Bilirubin 0.2 Direct Bilirubin 0.00 Indirect Bilirubin 0.2 Aspartate Amino Transf (AST/SGOT) 26 Alanine Aminotransferase (ALT/SGPT) 141 H Alkaline Phosphatase 113 Total Protein 6.9 # Albumin 3.3 Globulin 3.60 H Albumin/Globulin Ratio 0.91 Medications Medications Current Medications Ondansetron HCl (Zofran Inj) 4 mg Q6H PRN IV NAUSEA AND/OR VOMITING Last administered on 01/23/17 19:18; Admin Dose 4 MG; Start 01/23/17 at 16:00 Acetaminophen (Tylenol Tab) 650 mg Q6H PRN PO PAIN LEVEL 1-3 OR FEVER; Start 01/23/17 at 16:00 Acetaminophen (Tylenol Supp) 650 mg Q6H PRN [place] PAIN LEVEL 1-3 OR FEVER; Start 01/23/17 at 16:00 Docusate Sodium (Colace) 100 mg Q12H PRN PO CONSTIPATION Last administered on 01/23/17 23:38; Admin Dose 100 MG; Start 01/23/17 at 16:00 Magnesium Hydroxide (Milk Of Mag) 30 ml DAILY PRN PO CONSTIPATION Last administered on 01/27/17 17:03; Admin Dose 30 ML; Start 01/23/17 at 16:00 Bisacodyl (Dulcolax Supp) 10 mg DAILY PRN [place] CONSTIPATION Last administered on 01/27/17 14:01; Admin Dose 10 MG; Start 01/23/17 at 16:00 Enoxaparin Sodium 40 mg 40 mg DAILY SC Last administered on 01/28/17 09:39; Admin Dose 40 MG; Start 01/24/17 at 09:00 Potassium Chloride/Dextrose/ Sod Cl (D5-NS + KCl 20 Meq) 1,000 ml @ 125 mls/hr Q8H IV Last administered on 01/28/17 03:11; Admin Dose 125 MLS/HR; Start at 16:00 Morphine Sulfate 2 mg 2 mg Q2H PRN IV PAIN Last administered on 01/27/17 12:10 ; Admin Dose 2 MG; Start 01/23/17 at 22:00 Piperacillin Sod/ Tazobactam Sod (Zosyn 3.375gm/ 50 ml (Pmx)) 50 ml @ 100 mls/ hr Q8 IVPB Last administered on 01/28/17 05:24; Admin Dose 100 MLS/HR; Start 01/24/17 at 10:00 Simethicone (Mylicon) 80 mg Q6 GTB Last administered on 01/28/17 05:23; Admin Dose 80 MG; Start 01/25/17 at 12:00 Famotidine (Pepcid Iv) 20 mg BID IV Last administered on 01/28/17 09:39; Admin Dose 20 MG; Start 01/25/17 at 21:00 Polyethylene Glycol (Miralax) 17 gm BID PRN PO constipation; Start 01/27/17 at 11:30 DEDRICK LUCIA Jan 28, 2017 11:00
[2017-01-28 14:24] VITALS: BP 133/82; RESP 18
--- NOTE | 2017-01-28 15:39 | PN ---
Date/Time of Note Date/Time of Note DATE: 01/28/17 TIME: 15:33 Assessment/Plan VTE Prophylaxis VTE Prophylaxis Intervention: SCD's Lines/Catheters IV C[facility]ter Type (from [facility]): Peripheral IV Urinary Cath still in place: No Assessment/Plan Assessment/Plan 46-year-old female with: 1. Resolving severe pancreatitis based on symptoms and pancreatic enzymes, confirmed on CAT scan of the abdomen and pelvis with significant inflammation of the pancreas, also seen on MRCP. Gallbladder with nonspecific findings. No abdominal pain. Appreciate recommendations from a gastroenterology, Dr. Reza's team, started on clear liquids and advancing as tolerated in the next 24 hours.. Treating constipation. Etiology of pancreatitis might be viral versus autoimmune per GI evaluation, no need for additional imaging or repeat imaging for now. Discontinue antibiotics. 2. Transaminitis, significant on admission but improving. Resolving. Hepatitis panel negative. Prophylaxis: Protonix for GI prophylaxis, Lovenox for DVT prophylaxis Disposition: Continue current medical management, plan for diet to be started tomorrow. Patient is encouraged to ambulate. Subjective 24 Hr Interval Summary Free Text/Dictation Patient doing well today, she denies any abdominal pain. She started on clear liquids. We will advance as tolerated over the next 24 hours and hopefully discharge planning by tomorrow. Exam/Review of Systems Vital Signs Vitals Vital Signs Date Time Temp Pulse Resp B/P Pulse Ox O2 Delivery O2 Flow Rate FiO2 01/28/17 14:24 98.3 84 18 133/82 97 Intake and Output 01/27/17 01/27/17 01/28/17 15:00 23:00 07:00 Intake Total 125 ml 1020 ml 1500 ml Balance 125 ml 1020 ml 1500 ml Exam Constitutional: alert, oriented, well developed Respiratory: clear to auscultation, normal air movement Cardiovascular: nl pulses (,), regular rate and rhythm Gastrointestinal: distended (Much improved), soft Musculoskeletal: nl extremities to inspection, nl gait and stance Extremities: normal pulses, other (No edema, clubbing or cyanosis) 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: P[employer]ER II-XII intact, nl mental status, nl speech, nl strength Results Result Diagram: 01/28/17 0457 01/28/17 0457 Results 24 hrs Laboratory Tests Test 01/28/17 04:57 White Blood Count 10.4 Red Blood Count 3.53 L Hemoglobin 10.4 L Hematocrit 30.2 L Mean Corpuscular Volume 85.6 Mean Corpuscular Hemoglobin 29.5 Mean Corpuscular Hemoglobin Concent 34.4 Red Cell Distribution Width 12.9 Platelet Count 242 # Mean Platelet Volume 11.8 H Neutrophils % 74.9 Lymphocytes % 14.6 L Monocytes % 8.1 Eosinophils % 1.6 Basophils % 0.4 Nucleated Red Blood Cells % 0.0 Neutrophils # 7.8 H Lymphocytes # 1.5 Monocytes # 0.8 Eosinophils # 0.2 Basophils # 0.0 Nucleated Red Blood Cells # 0.0 Sodium Level 138 Potassium Level 3.8 Chloride Level 105 Carbon Dioxide Level 26 Anion Gap 11 Blood Urea Nitrogen 3 L Creatinine 0.49 Glucose Level 124 Calcium Level 8.5 Phosphorus Level 3.0 Magnesium Level 2.0 Total Bilirubin 0.2 Direct Bilirubin 0.00 Indirect Bilirubin 0.2 Aspartate Amino Transf (AST/SGOT) 26 Alanine Aminotransferase (ALT/SGPT) 141 H Alkaline Phosphatase 113 Total Protein 6.9 # Albumin 3.3 Globulin 3.60 H Albumin/Globulin Ratio 0.91 Medications Medications Current Medications Ondansetron HCl (Zofran Inj) 4 mg Q6H PRN IV NAUSEA AND/OR VOMITING Last administered on 01/23/17 19:18; Admin Dose 4 MG; Start 01/23/17 at 16:00 Acetaminophen (Tylenol Tab) 650 mg Q6H PRN PO PAIN LEVEL 1-3 OR FEVER; Start 01/23/17 at 16:00 Acetaminophen (Tylenol Supp) 650 mg Q6H PRN [place] PAIN LEVEL 1-3 OR FEVER; Start 01/23/17 at 16:00 Docusate Sodium (Colace) 100 mg Q12H PRN PO CONSTIPATION Last administered on 01/23/17 23:38; Admin Dose 100 MG; Start 01/23/17 at 16:00 Magnesium Hydroxide (Milk Of Mag) 30 ml DAILY PRN PO CONSTIPATION Last administered on 01/27/17 17:03; Admin Dose 30 ML; Start 01/23/17 at 16:00 Bisacodyl (Dulcolax Supp) 10 mg DAILY PRN [place] CONSTIPATION Last administered on 01/27/17 14:01; Admin Dose 10 MG; Start 01/23/17 at 16:00 Enoxaparin Sodium 40 mg 40 mg DAILY SC Last administered on 01/28/17 09:39; Admin Dose 40 MG; Start 01/24/17 at 09:00 Potassium Chloride/Dextrose/ Sod Cl (D5-NS + KCl 20 Meq) 1,000 ml @ 100 mls/hr Q10H IV Last administered on 01/28/17 14:32; Admin Dose 125 MLS/HR; Start at 16:00 Morphine Sulfate (morphine) 2 mg Q2H PRN IV PAIN Last administered on 12:10; Admin Dose 2 MG; Start 01/23/17 at 22:00 Simethicone (Mylicon) 80 mg Q6 GTB Last administered on 01/28/17 11:42; Admin Dose 80 MG; Start 01/25/17 at 12:00 Famotidine (Pepcid Iv) 20 mg BID IV Last administered on 01/28/17 09:39; Admin Dose 20 MG; Start 01/25/17 at 21:00 Polyethylene Glycol (Miralax) 17 gm BID PRN PO constipation; Start 01/27/17 at 11:30 RANJAN PARTIDA Jan 28, 2017 15:39
[2017-01-28 20:28] VITALS: BP 134/80; RESP 20
[2017-01-29] MEDS: ONDANSETRON 4 MG INJ IV PRN (00:26)
[2017-01-29 02:32] VITALS: BP 148/88; RESP 18
[2017-01-29] MEDS: D5-NS + KCL 20 MEQ 1,000 ML IV SCH (02:56)
[2017-01-29 06:57] LABS: MAGNESIUM 2.1 mg/dl (1.7-2.5); PHOSPHORUS 3.9 mg/dl (2.5-4.9)
[2017-01-29 07:03] LABS: ALBUMIN 3.1 g/dl (3.3-4.9); ALBUMIN/GLOBULIN RATIO 0.86; BILIRUBIN,INDIRECT 0.3 mg/dl (0-1.1); BILIRUBIN,TOTAL 0.3 mg/dl (0.2-1.3); CREATININE 0.47 mg/dl (0.44-1.00); POTASSIUM 4.1 mmol/L (3.5-5.1); TOTAL PROTEIN 6.7 g/dl (6.1-8.1)
[2017-01-29 07:54] VITALS: BP 123/83; RESP 18
[2017-01-29] MEDS: FAMOTIDINE 20 MG INJ IV SCH (08:21)
[2017-01-29] MEDS: ENOXAPARIN 40 MG/0.4 ML SYG SC SCH (08:22)
[2017-01-29 09:47] LABS: BASOPHILS % 0.5 % (0.0-2.0); EOSINOPHILS # 0.2 10^3/ul (0.0-0.5); EOSINOPHILS % 2.3 % (0.0-7.0); HEMATOCRIT 32.2 % (37.0-47.0); HEMOGLOBIN 11.2 g/dl (12.0-16.0); LYMPHOCYTES # 1.9 10^3/ul (0.8-2.9); LYMPHOCYTES % 21.4 % (15.0-51.0); MEAN CORPUSCULAR HEMOGLOBIN 30.1 pg (29.0-33.0); MEAN CORPUSCULAR HGB CONC 34.8 g/dl (32.0-37.0); MEAN CORPUSCULAR VOLUME 86.6 fl (82.0-101.0); MONOCYTE # 0.7 10^3/ul (0.3-0.9); MONOCYTES % 8.6 % (0.0-11.0); NEUTROPHIL # 5.8 10^3/ul (1.6-7.5); PLATELET COUNT 297 10^3/UL (140-415); RED BLOOD COUNT 3.72 10^6/ul (4.20-5.40); RED CELL DISTRIBUTION WIDTH 13.2 % (11.5-14.5); WHITE BLOOD COUNT 8.6 10^3/ul (4.8-10.8)
--- NOTE | 2017-01-29 10:20 | PN ---
Date/Time of Note Date/Time of Note DATE: 01/29/17 TIME: 10:11 Assessment/Plan VTE Prophylaxis VTE Prophylaxis Intervention: SCD's Lines/Catheters IV Catheter Type (from [facility]): Peripheral IV Urinary Cath still in place: No Assessment/Plan Chief Complaint/Hosp Course Assessment: Acute pancreatitis Viral versus autoimmune MRCP- negative for ductal dilatation or choledocholithiasis. Hepatitis panel is negative Patient does not drink ETOH Transaminitis continue trending down Leukocytosis 16.6 Abdominal distention due to gas Plan: D/c IVF Increase to Regular diet Aminotransferase trending down Patient seen in collaboration with Dr. Reza Patient doing well, no c/o abd pain, nausea or vomiting, will increase to regular diet and d/c IVF. PHYSICAL EXAMINATION: GENERAL: Well developed, well nourished, alert & oriented x 3, in no acute distress SKIN: No lesions, no stigmata chronic liver disease, no evidence of bleeding diathesis LYMPHATIC: No palpable lymphadenopathy. HEAD: Normocephalic, atraumatic, no tenderness. EYES: Pupils equal reactive to light and accommodation, full extraocular movements, sclera clear, non-icteric, no discharge. EARS/NOSE AND THROAT: Ears normal, nose normal, oropharynx normal, oral membranes well hydrated without lesions. NECK: Supple, no masses, thyroid normal, CHEST: Inspection within normal limits. CARDIOVASCULAR: Heart: Regular rate and rhythm, no murmurs, gallops or rubs. Peripheral pulses present within normal limits, no cyanosis, clubbing or edemas. No pulsatile abdominal mass RESPIRATORY: Lungs clear to auscultation and percussion, no wheezing, no rubs GASTROINTESTINAL AND LIVER: Abdomen: Obese, distended, generalized tenderness especially in the left upper quadrant area, no hernias, no masses, no organomegaly, no ascites, no guarding, no rebound tenderness, normoactive bowel sounds. Rectal: Deferred. GENITOURINARY: Female genitalia within normal limits.] EXTREMITIES: No cyanosis, clubbing or edema. Problems: Problems: Exam/Review of Systems Vital Signs Vitals Vital Signs Date Time Temp Pulse Resp B/P Pulse Ox O2 Delivery O2 Flow Rate FiO2 01/29/17 07:54 98.2 81 18 123/83 98 Intake and Output 01/28/17 01/28/17 01/29/17 15:00 23:00 07:00 Intake Total 850 ml 830 ml 1550 ml Balance 850 ml 830 ml 1550 ml Results Result Diagram: 01/29/17 0535 01/29/17 0535 Results 24 hrs Laboratory Tests Test 01/29/17 05:35 White Blood Count 8.6 Red Blood Count 3.72 L Hemoglobin 11.2 L Hematocrit 32.2 L Mean Corpuscular Volume 86.6 Mean Corpuscular Hemoglobin 30.1 Mean Corpuscular Hemoglobin Concent 34.8 Red Cell Distribution Width 13.2 Platelet Count 297 # Mean Platelet Volume 12.0 H Neutrophils % 67.0 Lymphocytes % 21.4 Monocytes % 8.6 Eosinophils % 2.3 Basophils % 0.5 Nucleated Red Blood Cells % 0.0 Neutrophils # 5.8 Lymphocytes # 1.9 Monocytes # 0.7 Eosinophils # 0.2 Basophils # 0.0 Nucleated Red Blood Cells # 0.0 Sodium Level 140 Potassium Level 4.1 Chloride Level 105 Carbon Dioxide Level 25 Anion Gap 14 Blood Urea Nitrogen 2 L Creatinine 0.47 Glucose Level 121 Calcium Level 9.0 Phosphorus Level 3.9 Magnesium Level 2.1 Total Bilirubin 0.3 Direct Bilirubin 0.00 Indirect Bilirubin 0.3 Aspartate Amino Transf (AST/SGOT) 25 Alanine Aminotransferase (ALT/SGPT) 122 H Alkaline Phosphatase 110 Total Protein 6.7 Albumin 3.1 L Globulin 3.60 H Albumin/Globulin Ratio 0.86 Amylase Level 41 Lipase 90 Medications Medications Current Medications Ondansetron HCl (Zofran Inj) 4 mg Q6H PRN IV NAUSEA AND/OR VOMITING Last administered on 01/29/17 00:26; Admin Dose 4 MG; Start 01/23/17 at 16:00 Acetaminophen (Tylenol Tab) 650 mg Q6H PRN PO PAIN LEVEL 1-3 OR FEVER; Start 01/23/17 at 16:00 Acetaminophen (Tylenol Supp) 650 mg Q6H PRN [place] PAIN LEVEL 1-3 OR FEVER; Start 01/23/17 at 16:00 Docusate Sodium (Colace) 100 mg Q12H PRN PO CONSTIPATION Last administered on 01/23/17 23:38; Admin Dose 100 MG; Start 01/23/17 at 16:00 Magnesium Hydroxide (Milk Of Mag) 30 ml DAILY PRN PO CONSTIPATION Last administered on 01/27/17 17:03; Admin Dose 30 ML; Start 01/23/17 at 16:00 Bisacodyl (Dulcolax Supp) 10 mg DAILY PRN [place] CONSTIPATION Last administered on 01/27/17 14:01; Admin Dose 10 MG; Start 01/23/17 at 16:00 Enoxaparin Sodium 40 mg 40 mg DAILY SC Last administered on 01/29/17 08:22; Admin Dose 40 MG; Start 01/24/17 at 09:00 Potassium Chloride/Dextrose/ Sod Cl (D5-NS + KCl 20 Meq) 1,000 ml @ 100 mls/hr Q10H IV Last administered on 01/29/17 02:56; Admin Dose 100 MLS/HR; Start at 16:00 Morphine Sulfate (morphine) 2 mg Q2H PRN IV PAIN Last administered on 12:10; Admin Dose 2 MG; Start 01/23/17 at 22:00 Simethicone (Mylicon) 80 mg Q6 GTB Last administered on 01/29/17 05:37; Admin Dose 80 MG; Start 01/25/17 at 12:00 Famotidine (Pepcid Iv) 20 mg BID IV Last administered on 01/29/17 08:21; Admin Dose 20 MG; Start 01/25/17 at 21:00 Polyethylene Glycol (Miralax) 17 gm BID PRN PO constipation; Start 01/27/17 at 11:30 DEDRICK LUCIA Jan 29, 2017 10:20
--- NOTE | 2017-01-29 10:30 | RADRPT ---
PROCEDURE: XR Abdomen. CLINICAL INDICATION: Nausea and vomiting TECHNIQUE: 2 AP supine abdominal images are available for review. COMPARISON: Abdominal images and 01/27/2017 FINDINGS: There is no evidence of large or small bowel dilatation. Specifically no mechanical bowel obstructio n. Numerous phleboliths seen in the right left bony pelvis. No evidence of intra-abdominal gross fiona e air or fluid. IMPRESSION: No evidence of mechanical bowel obstruction or gross free air. RPTAT:AAJJ Physician Tatiana Date Time Electronically viewed and signed by Queta Lugo Physician on 01/29/2017 10:29 BM/
--- NOTE | 2017-01-29 12:59 | PN ---
Date/Time of Note Date/Time of Note DATE: 01/29/17 TIME: 12:55 Assessment/Plan VTE Prophylaxis VTE Prophylaxis Intervention: LMWH Lines/Catheters IV [facility]ter Type (from [facility]): Peripheral IV Urinary Cath still in place: No Assessment/Plan Assessment/Plan 46-year-old female with: 1. Resolved severe pancreatitis. Initiate assistance from gastroenterology, no intervention needed, no repeat imaging needed. Patient symptomatically back to baseline. Tolerating p.o. Discharge home today. Follow-up with primary care physician within 1 week Etiology of pancreatitis might be viral versus autoimmune per GI evaluation, no need for additional imaging or repeat imaging for now. On soft diet, low-fat to be advanced slowly in the next 3-5 days 2. Transaminitis, significant on admission but improving. Resolved. Hepatitis panel negative. Prophylaxis: Protonix for GI prophylaxis, Lovenox for DVT prophylaxis Disposition: Discharge plan home today, follow-up with primary care physician within 1 week, as needed follow-up with gastroenterology if further intervention needed electively. Subjective 24 Hr Interval Summary Free Text/Dictation Patient doing well today, tolerating clears, no nausea or vomiting, she has some bloating but no epigastric pain. KUB negative today. Pancreatic enzymes remain within normal. LFTs much improved almost back to normal. Patient tolerating soft diet, she will be discharged home today with outpatient follow- up with primary care physician. Exam/Review of Systems Vital Signs Vitals Vital Signs Date Time Temp Pulse Resp B/P Pulse Ox O2 Delivery O2 Flow Rate FiO2 01/29/17 07:54 98.2 81 18 123/83 98 Intake and Output 01/28/17 01/28/17 01/29/17 15:00 23:00 07:00 Intake Total 850 ml 830 ml 1550 ml Balance 850 ml 830 ml 1550 ml Exam Constitutional: alert, oriented, well developed Respiratory: clear to auscultation, normal air movement Cardiovascular: nl pulses, regular rate and rhythm Gastrointestinal: distended (Mild, resolving.), non-tender, soft Musculoskeletal: nl extremities to inspection, nl gait and stance 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: ACCOUNTS RECEIVABLE ANALYST II-XII intact, nl mental status, nl speech, nl strength Results Result Diagram: 01/29/17 0535 01/29/17 0535 Results 24 hrs Laboratory Tests Test 01/29/17 05:35 White Blood Count 8.6 Red Blood Count 3.72 L Hemoglobin 11.2 L Hematocrit 32.2 L Mean Corpuscular Volume 86.6 Mean Corpuscular Hemoglobin 30.1 Mean Corpuscular Hemoglobin Concent 34.8 Red Cell Distribution Width 13.2 Platelet Count 297 # Mean Platelet Volume 12.0 H Neutrophils % 67.0 Lymphocytes % 21.4 Monocytes % 8.6 Eosinophils % 2.3 Basophils % 0.5 Nucleated Red Blood Cells % 0.0 Neutrophils # 5.8 Lymphocytes # 1.9 Monocytes # 0.7 Eosinophils # 0.2 Basophils # 0.0 Nucleated Red Blood Cells # 0.0 Sodium Level 140 Potassium Level 4.1 Chloride Level 105 Carbon Dioxide Level 25 Anion Gap 14 Blood Urea Nitrogen 2 L Creatinine 0.47 Glucose Level 121 Calcium Level 9.0 Phosphorus Level 3.9 Magnesium Level 2.1 Total Bilirubin 0.3 Direct Bilirubin 0.00 Indirect Bilirubin 0.3 Aspartate Amino Transf (AST/SGOT) 25 Alanine Aminotransferase (ALT/SGPT) 122 H Alkaline Phosphatase 110 Total Protein 6.7 Albumin 3.1 L Globulin 3.60 H Albumin/Globulin Ratio 0.86 Amylase Level 41 Lipase 90 Medications Medications Current Medications Ondansetron HCl (Zofran Inj) 4 mg Q6H PRN IV NAUSEA AND/OR VOMITING Last administered on 01/29/17 00:26; Admin Dose 4 MG; Start 01/23/17 at 16:00 Acetaminophen (Tylenol Tab) 650 mg Q6H PRN PO PAIN LEVEL 1-3 OR FEVER; Start 01/23/17 at 16:00 Acetaminophen (Tylenol Supp) [address] PAIN LEVEL 1-3 OR FEVER; Start 01/23/17 at 16:00 Docusate Sodium (Colace) 100 mg Q12H PRN PO CONSTIPATION Last administered on 01/23/17 23:38; Admin Dose 100 MG; Start 01/23/17 at 16:00 Magnesium Hydroxide (Milk Of Mag) 30 ml DAILY PRN PO CONSTIPATION Last administered on 01/27/17 17:03; Admin Dose 30 ML; Start 01/23/17 at 16:00 Bisacodyl (Dulcolax Supp) [address] CONSTIPATION Last administered on 01/27/17 14:01; Admin Dose 10 MG; Start 01/23/17 at 16:00 Enoxaparin Sodium (Lovenox) 40 mg DAILY SC Last administered on 01/29/17 08:22 ; Admin Dose 40 MG; Start 01/24/17 at 09:00 Morphine Sulfate (morphine) 2 mg Q2H PRN IV PAIN Last administered on 12:10; Admin Dose 2 MG; Start 01/23/17 at 22:00 Simethicone (Mylicon) 80 mg Q6 GTB Last administered on 01/29/17 12:03; Admin Dose 80 MG; Start 01/25/17 at 12:00 Famotidine (Pepcid Iv) 20 mg BID IV Last administered on 01/29/17 08:21; Admin Dose 20 MG; Start 01/25/17 at 21:00 Polyethylene Glycol (Miralax) 17 gm BID PRN PO constipation; Start 01/27/17 at 11:30 RANJAN PARTIDA Jan 29, 2017 12:59
--- NOTE | 2017-01-29 13:00 | PDOCDIS ---
Discharge Instructions CONDITION Patient Condition: Stable HOME CARE INSTRUCTIONS: Diet Instructions: Low Fat /CholesterolSpecial Diet: Soft diet, patient may advance to regular consistency food in the next 48 h ACTIVITY: Activity Restrictions: No Restrictions FOLLOW UP/APPOINTMENTS Follow-up Plan Follow-up with primary care physician within 1 week SCHOOL/WORK RELEASE May return to School/Work on: Jan 30, 2017 RANJAN PARTIDA Jan 29, 2017 13:00
[2017-01-29] MEDS: MAGNESIUM HYDROXIDE 30ML CUP PO PRN (15:58)
--- NOTE | 2017-01-30 16:08 | DS ---
Date/Time of Note Date/Time of Note DATE: 01/30/17 TIME: 16:02 Discharge Summary Admission/Discharge Info Admit Date/Time Jan 23, 2017 at 15:34 Discharge Date/Time Jan 29, 2017 at 15:45 Discharge Diagnosis 1. Severe pancreatitis, viral versus autoimmune. Resolved 2. Transaminitis. Resolved. Patient Condition: Stable Consults Gastroenterology, Dr. Reza Procedures None Hx of Present Illness Chief complaint: Abdominal pain History of presenting illness: 46-year-old female with no previous medical history who presented to the emergency department was reported acute severe abdominal pain today. Patient reports that she had similar epigastric pain/pressure on , she was told that it may be GERD or gastritis, she was started on proton pump inhibitors and taking Nexium, her discomfort resolved for the rest of last week, she had recurrence of the epigastric discomfort 2 days ago. Again resolved with proton pump inhibitors. However today around 11:30 AM she started having again recurrence of the epigastric discomfort, and over the period of a couple hours it worsened significantly and involve the rest of her abdomen, she did eat lunch however she had puposa, her pain persisted throughout the afternoon therefore she came to the emergency department. She denies nausea, vomiting, fevers. She denies previous diagnosis of gallstones disease or previous episodes of pancreatitis. In the emergency department her laboratory data did show a lipase of almost 40,000 with transaminitis, normal bilirubin level. Patient is admitted with severe acute pancreatitis based on pancreatic enzymes and current symptoms, otherwise her CBC and renal function remained stable. She will be kept n.p.o., on IV fluids. She is admitted to medical surgical bed, gallbladder ultrasound and MRCP's are pending. GI will be consulted. Patient denies any personal history of family history of malignancies especially colorectal or pancreatic. She denies previous diagnosis of gallstone disease. No history of heavy alcohol use, she denies alcohol intake actually, only takes Nexium as outpatient, however she does have a fatty diet. Hospital Course Patient was maintained n.p.o. at first, she had MRCP is done and there was no signs of biliary obstruction, her pancreatic enzymes improved rapidly and her pancreatitis resolved chemically within 2 days. However she was still having some abdominal pain which took longer to resolved and also some bloating. Although symptoms subsided she was started on clears and advance to mechanical soft low-fat diet with no worsening of pain. She tolerated p.o. very well. Repeat pancreatic enzymes at the time of discharge did normalize and remained normal. Also she had KUBs done during this admission that showed no obstruction and no ileus. Patient was therefore discharged home with outpatient follow-up with her primary care physician. She had transaminitis and was noted to have fatty liver on admission, hepatitis panel was negative. LFTs were close to normal by the time of discharge. Home Meds Reported Medications Esomeprazole Mag Trihydrate (Nexium) 20 Mg Capsule., 20 MG PO DAILY, #30 CAP 01/23/17 Follow-up Plan Follow-up with primary care physician within 1 week Primary Care Provider Baljit Sharp Time spent on discharge: > 30 minutes RANJAN PARTIDA Jan 30, 2017 16:08
== END 2017-01-29 15:45 | disposition home or self-care (01) | DRG 440 ==
LOC: E/R 12:57 → PP2 15:34
PROVIDERS: ADMIT Internal Medicine; ATTEND Internal Medicine
DX: K85.90 Acute pancreatitis without necrosis or infection, unspecified (principal); K76.0 Fatty (change of) liver, not elsewhere classified; R74.0 Nonspecific elevation of levels of transaminase and lactic acid dehydrogenase [LDH]
CPT/HCPCS: 36415; 74000; 74176; 74181; 76705; 80048; 80053; 80061; 80076; 82150; 83036; 83690; 83735; 84100; 85025; 85610; 85730; 86704; 86709; 86803; 87340; 96361; 96374; 96375; 96376; C9113; J1170; J1650; J2270; J2405; J2543; J3480; J7030